=== PATIENT | male | born 1960 | race Caucasian/White ===

== ENCOUNTER 2017-05-06 00:09 | Emergency (ER) | payer MEDICARE, SELFPAY ==
[2017-05-06 00:10] VITALS: BP 125/77; PULSE 68; RESP 18; TEMP 36.8; O2SAT 95; BMI 28.8
--- NOTE | 2017-05-06 00:19 | ED.VISSUMM ---
- ER Visit Summary Date of Service: 05/06/17 Chief Complaint: Back pain History of Present Illness: The patient is a 56 M with history of CML and recent rib fractures who presents with back pain. Patient states he fell 2 weeks ago and broke ribs on the left lateral chest. He has been taking Percocet for this. This morning he woke up and had severe back pain in the right midline thoracic region radiating down into his sacrum area. He denies any trauma. He is last 2 Percocet without relief. He has been having difficulty ambulating secondary to the pain. When he went to get his mail and came inside, his legs gave out and he had to crawl back to his apartment. He has had to crawl around his apartment since because of inability to stand secondary to the pain. He denies fever, abdominal pain, numbness or tingling in the legs, loss of bowel or bladder function. Denies history of IV drug use or back surgery. He does have history of leukemia, COPD, and atrial fibrillation. He is not anticoagulated. Physical Examination: Vital signs: afebrile, hemodynamically stable, no hypoxia on room air General: well nourished, well developed, in no distress, but appears uncomfortable, laying partially on his right side. Skin: warm, dry, no rash, no pallor HEENT: normocephalic and atraumatic; PERRL, EOMI, moist mucous membranes Cardiovascular: regular rate and rhythm without murmurs, no peripheral edema, 2+ pulses all distal extremities Respiratory: No increased work of breathing, shallow respirations secondary to pain, lungs are clear to auscultation bilaterally, no rales, rhonchi or wheezing Abdominal: Abdomen is soft, nontender with normoactive bowel sounds, no guarding or rebound, no masses, good rectal tone MSK: Moves all extremities, no deformities, weakness (4/5) in dorsiflexion and plantar flexion that is symmetric Neuro: Awake and alert, oriented ?4. No facial droop, sensation and motor function intact and symmetric, sensation intact in the perineum Test Results: Abnormal Lab Results 05/06/17 05/06/17 05/06/17 00:35 00:35 02:28 WBC 4.9 RBC 4.75 Hgb 14.8 Hct 44.7 MCV 94.1 H MCH 31.2 MCHC 33.1 RDW 13.4 RDW Differential 46.1 H Plt Count 151 MPV 10.0 Immature Gran % (Auto) 0.600 Neut % (Auto) 48.8 Lymph % (Auto) 39.1 [place] % (Auto) 7.7 Eos % (Auto) 3.6 Baso % (Auto) 0.2 Absolute Neuts (auto) 2.4 Absolute Lymphs (auto) 1.93 Total Counted Not Reportable ESR 1 Sodium 141 Potassium 4.2 Chloride 106 Carbon Dioxide 28.0 Anion Gap 7 BUN 24 H Creatinine 1.06 Estim Creat Clear Calc 65.93 Est GFR (MDRD) Af Amer 93 Est GFR (MDRD) Non-Af 77 BUN/Creatinine Ratio 22.6 H Glucose 112 H Calcium 8.5 Total Bilirubin 0.60 AST 27 ALT 33 Alkaline Phosphatase 125 H Troponin I < 0.02 C-React Prot Ext Range < 2.90 Total Protein 6.7 Albumin 3.6 Globulin 3.1 Albumin/Globulin Ratio 1.2 Lipase 93 Urine Color Yellow Urine Clarity Clear Urine pH 6.0 Ur Specific Quentin 1.015 Urine Protein Negative Urine Glucose (UA) Normal Urine Ketones Negative Urine Occult Blood Negative Urine Nitrite Negative Urine Bilirubin Negative Urine Urobilinogen Normal Ur Leukocyte Esterase Negative Urine RBC 0 SEEN Urine WBC 0 SEEN Ur Squamous Epith Cells 0 SEEN Urine Bacteria 0 SEEN Urine Mucus 0 SEEN Emergency Department Course and Treatment: Patient was given IV fluids and morphine for pain. He did not get much relief from the morphine. Workup was performed with concern that patient's back pain may be pathological rather than a simple muscle spasm. Patient does have a history of leukemia, and he is having midline back pain with weakness in his legs that may be secondary to pain but difficult to tell at this time. Workup also for intra-abdominal pathologies, including aortic dissection, given the patient is complaining of severe back pain in addition to his left-sided rib pain. Patient had no leukocytosis, no electrolyte derangements, no hepatic derangements. Troponin negative. ESR was 1 and CRP was less than 2.9, thus negative inflammatory markers. EKG showed a normal sinus rhythm without ischemia or ectopy. CTA of the chest, abdomen and pelvis showed no aortic dissection or pulmonary embolism. It did not note fractured ribs either. There were no concerning metastatic lesions noted in the thoracic or abdominal cavities and there were no spinal bony abnormalities that would be concerning for metastasis or pathologic fractures. Patient continued to have pain despite the morphine and was stating it is radiating into his thighs bilaterally. Straight leg raise was repeated, and patient in a supine position had negative straight leg raise bilaterally. He continued to have midline tenderness and right paraspinal tenderness from the low thoracic to the low lumbar region. Strength reevaluated and it was 5/5 bilaterally. Patient was given oral Zanaflex and had great improvement in his pain. He stated it still felt sore but he felt he could walk now. Reevaluation showed no bowel or bladder dysfunction, good strength and symmetric in the lower extremities, and patient was ambulated to show he could walk. At this time I do not think there are any red flag symptoms concerning for infectious process, metastatic process, cauda equina syndrome, or other need for emergent MRI. Patient was given a prescription for Zanaflex to treat muscle spasm. He was given strict return precautions and will come back if he has any worsening of his condition, including bowel or bladder incontinence, retention, actual weakness rather than just pain in the legs with ambulation, or any other concerns. Treatment Plan: [] Disposition: Discharge home Impression: Acute back muscle spasm This note was generated with [employer] dictation software. It may contain incorrect words, spelling, and punctuation that were not noted in review of the chart prior to signing ED Disposition - Plan for ED Patient: Chief Complaint: Back Prescriptions: Tizanidine HCl [Zanaflex] 2 mg PO Q6H PRN #20 tab PRN Reason: Muscle Spasm Referrals: Bella Ribeiro MD [Primary Care Provider] -
--- NOTE | 2017-05-06 00:22 | EKG12_ITS ---
Test Reason : Blood Pressure : / mmHG Vent. Rate : 068 BPM Atrial Rate : 068 BPM P-R Int : 140 ms QRS Dur : 086 ms QT Int : 372 ms P-R-T Axes : 026 028 043 degrees QTc Int : 395 ms Sinus rhythm with Premature atrial complexes Otherwise normal ECG Confirmed by LIDYA SALTER, MIGUEL ÁNGEL ([id number]), editor index JENNI SCOTT ([id number]) on 05/09/2017 8:37:21 AM Referred By: LON Confirmed By:MIGUEL ÁNGEL BOSE MD
--- NOTE | 2017-05-06 00:23 | CT_ITS ---
STUDY: CTA CHEST REASON FOR EXAM: Male, 56 years old. Back pain. History of broken ribs. RADIATION DOSAGE (If Supplied By Facility): CTDIvol = ( 22.97 ) mGy, DLP = ( 583.35 ) mGycm TECHNIQUE: The examination was performed with the intravenous administration of 100 ml of Isovue 370 contrast material. Post-processing of the angiographic images was performed, with multiplanar reformation and 3D reconstruction. Individualized dose optimization techniques were used for this CT. COMPARISON: None. FINDINGS: : TRACHEA, THYROID, ESOPHAGUS: No tracheomalacia,stricture or wall thickening. Thyroid and esophagus are normal CARDIOVASCULAR SYSTEM:The thoracic aorta is normal with no aneurysm, dissection or developmental anomalies. The pulmonary trunk and the left and right pulmonary arteries and their lobar and segmental branches do not show any abnormal and persistent filling defects in them. There is therefore no evidence of pulmonary embolism. The heart is normal. There are no venous anomalies MELANIA AND LYMPH NODES: No hilar masses and no mediastinal, hilar, axillary or supraclavicular adenopathy LUNGS, LOW-ATTENUATION: No traction bronchiectasis, honeycombing,emphysema, lung cysts or cavitations. No evidence of lung laceration. LUNGS, HIGH ATTENUATION: Platelike atelectatic changes in the lung bases with mild increased interstitial markings in the lower lobes. No areas of contusion LUNGS, MOSAIC/CRAZY PAVING: Not evident PLEURA AND CHEST WALL: No plural effusions, pneumothoraces,rib fractures or any osteolytic/osteoblastic changes . The soft tissue chest wall including the breasts are normal UPPER ABDOMEN: Unremarkable . CT/CTA Chest W/WO Contrast IMPRESSION: No evidence of any thoracic aortic dissection or aneurysm. No evidence of any pulmonary embolus. Plate atelectatic changes in the lung bases with mild increased interstitial markings in the lower lobe. No acute rib fractures Electronically Signed: Brian Lama, at 2:48 EST Tel , Service support ,
--- NOTE | 2017-05-06 00:23 | CT_ITS ---
STUDY: CTA ABDOMEN AND PELVIS REASON FOR EXAM: Male, 55 years old. Shortness of breath and cough for several weeks. RADIATION DOSAGE (If Supplied By Facility): CTDIvol = ( 9.02 ) mGy, DLP = ( 337.97 ) mGycm TECHNIQUE: The examination was performed with the intravenous administration of 75 ml of Isovue 370 contrast material. Post-processing of the angiographic images was performed, with multiplanar reformation and 3D reconstruction. Individualized dose optimization techniques were used for this CT. COMPARISON: None. FINDINGS: The aorta is visualized is entirety and shows no dissection or focal aneurysms. The takeoffs of the celiac axis, the SMA, the SANDRINE and renal arteries are within normal limits. The common iliac arteries, the internal and external iliac arteries and in the common femoral arteries are normal. The liver, gallbladder, spleen, pancreas, kidneys and adrenals are normal. The stomach is normal. There is no bowel distention or free intraperitoneal air and no acute appendicitis or diverticulitis. The abdominal wall is intact. There is no retrocrural, retroperitoneal or mesenteric adenopathy. The bones and joints are normal. The urinary bladder is normal. The prostate is not enlarged and is no inguinal or pelvic adenopathy. CT/CT ANGIO ABD&PEL W/O&W/DYE IMPRESSION: No evidence of any thoracic aorta dissection or focal aneurysm. No acute findings in the abdomen or pelvis. Electronically Signed: Brian Lama, at 2:53 EST Tel , Service support ,
[2017-05-06] MEDS: Ondansetron 4 MG/2 ML Vial IV (00:45)
[2017-05-06] MEDS: 0.9% Normal Saline 1,000 ML 1000 ML IV (00:47)
[2017-05-06 00:48] LABS: Erythrocyte Sedimentation Rate 1 mm/hr (0-20)
[2017-05-06 00:49] LABS: Absolute Lymphocyte Count 1.93 X10^3/ul (0.83-4.51); Absolute Neutrophil Count 2.4 X10^3/uL (2.0-7.7); Basophil# 0.01 X10^3/uL; Basophil% 0.2 % (0-1); Eosinophil# 0.18 X10^3/uL; Eosinophils% 3.6 % (0-5); Hematocrit 44.7 % (40-54); Hemoglobin 14.8 g/dl (13.0-16.5); Lymphocyte # 1.93 X10^3/ul (4.0); Lymphocyte % 39.1 % (19-41); Mean Corp Hgb Conc 33.1 g/gl (32-36); Mean Corpuscular Hgb 31.2 pg (27.0-32.0); Mean Corpuscular Volume 94.1 fL (80-94); Monocyte# 0.38 X10^3/uL; Monocyte% 7.7 % (0-10); Neutrophil # 2.41 X10^3/uL (2.7-7.7); Neutrophil % 48.8 % (47-70); POSITIVE COUNT NO; POSITIVE DIFFERENTIAL NO; POSITIVE MORPHOLOGY NO; Platelet Count 151 K/mm3 (150-450); RBC Distribution Width CV 13.4 % (11.6-14.6); RBC Distribution Width SD 46.1 fl (35.1-43.9); Red Blood Count 4.75 M/mm3 (4.6-6.2); White Blood Count 4.9 K/mm3 (4.4-11.0)
[2017-05-06 00:55] VITALS: BP 99/61; PULSE 62; RESP 16; O2SAT 69
--- NOTE | 2017-05-06 01:26 | ED.RN ---
PT REFUSES ENTIRE DOSE OF MORPHINE, 6MG OF 10 MG ORDERED GIVEN. PT RESTING WITH EYES CLOSED AFTER 6MG, RR 7, AWAKES EASILY TO NAME. PT STATES PAIN IS TOLERABLE AT THIS TIME. MD NOTIFIED.
--- NOTE | 2017-05-06 01:36 | ED.RN ---
REMAINING 4MG OF ORDERED 10 MG GIVEN, PT'S PAIN INCREASED, AWAKE, ALERT, RR 24, SPO2 99%, BP 100/51. MD REQUESTS ENTIRE DOSE BE GIVEN.
[2017-05-06 02:16] LABS: ALB/GLOB Ratio 1.2 RATIO (0.9-2.4); AST(SGOT) 27 U/L (15-37); Alanine Aminotransfer ALT/SGPT 33 U/L (16-61); Albumin, Serum 3.6 g/dL (3.2-5.0); Alkaline Phosphatase 125 U/L (45-117); Anion Gap 7 (5-15); BUN 24 mg/dL (7-18); BUN/Creat Ratio 22.6 RATIO (10-20); CRP < 2.90 mg/L (0.0-3.0); Calcium,Total 8.5 mg/dL (8.5-10.1); Chloride 106 mmol/L (98-107); Creatinine, Serum 1.06 mg/dL (0.70-1.30); EST Glomerular Filtration Rate 77 mL/min (>60); Est Glom Filt Rate - Afr Amer 93 mL/min (>60); Estimated Creatinine Clearance 65.93 ml/min; Globulin 3.1 g/dL (2.2-4.2); Glucose 112 mg/dL (74-106); Lipase 93 U/L (73-393); Potassium 4.2 mmol/L (3.5-5.1); Protein, Total 6.7 g/dL (6.4-8.2); Sodium Level 141 mmol/L (136-145)
[2017-05-06 02:34] LABS: Bacteria 0 SEEN /hpf (None Seen); Mucous, Urine 0 SEEN /hpf (<or=2+); Red Blood Cells-Urine 0 SEEN /hpf (0-5); Squamous Epithelial Cells - UA 0 SEEN /hpf (0-5); White Blood Cells 0 SEEN /hpf (0-5)
[2017-05-06 02:36] LABS: Color, Urine Yellow (Yellow); Glucose, Dipstick Normal (Normal); Ketone-Dipstick Negative (Negative); Leukocyte Esterase-Dipstick Negative /ul (Negative); Nitrite-Dipstick Negative (Negative); Occult Blood-Urine Negative /ul (Negative); Protein-Dipstick Negative (Negative); Specific Gravity, Urine 1.015 (1.002-1.030); Urine Bilirubin Dipstick Negative (Negative); Urine Clarity Clear (Clear); Urine Urobilinogen Normal (Normal)
[2017-05-06 03:07] VITALS: BP 106/53; PULSE 60; RESP 15; O2SAT 97
[2017-05-06 04:07] VITALS: BP 91/53; PULSE 61; RESP 13; O2SAT 97
[2017-05-06] MEDS: tiZANidine HCl 2 MG Tablet 4 MG PO (04:28)
--- NOTE | 2017-05-06 05:43 | ED.DEP ---
ED Disposition - Plan for ED Patient: Disposition: Home or Assisted Living Chief Complaint: Back Instructions: ED Spasm Back No Trauma Prescriptions: Tizanidine HCl [Zanaflex] 2 mg PO Q6H PRN #20 tab PRN Reason: Muscle Spasm Referrals: Bella Ribeiro MD [Primary Care Provider] - 2 Days Additional Instructions: Please follow-up with your doctor to discuss your back pain and your continued rib pain. Please continue to use the incentive spirometer and pain medications as you were instructed for the rib pain. You may use ibuprofen or naproxen as needed for the back pain. Also you may use the muscle relaxant to help with muscle spasm and pain. If you develop difficulty controlling your bowels or bladder, if you find you cannot have a bowel movement or urinate, if you develop a high fever, severe pain not controlled with the medications, weakness in your legs and inability to walk, or any other concerning symptoms, please return the emergency department immediately for another evaluation.
[2017-05-06 07:23] VITALS: BP 91/66; PULSE 71; RESP 16
--- NOTE | 2017-05-06 07:25 | ED.RN ---
Pt c/o pain to lower back. Verifies his ride is on way. Asks for additional meds. Physician aware and refused additional meds.
== END 2017-05-06 08:41 | disposition home or self-care (01) ==
PROVIDERS: Emergency Provider Emergency Medicine; Family Provider Internal Medicine; PCP Internal Medicine
DX: M62.830 Muscle spasm of back (principal); M54.6 Pain in thoracic spine; M54.5 Low back pain; J44.9 Chronic obstructive pulmonary disease, unspecified
CPT/HCPCS: 71275; 74174; 80053; 81001; 83690; 84484; 85025; 85652; 86140; 93005; 96361; 96374; 96375; 99285; J7030; Q9967; A4216; J2405

== ENCOUNTER 2017-09-26 04:36 | Emergency (ER) | payer MEDICARE, SELFPAY ==
[2017-09-26 04:37] VITALS: BP 128/88; PULSE 73; RESP 18; TEMP 36.4; O2SAT 99; BMI 26.4
--- NOTE | 2017-09-26 05:02 | ED.VISSUMM ---
- ER Visit Summary Date of Service: 09/26/17 Chief Complaint: [Rash] History of Present Illness: The patient is a 56 M [who presents the emergency department with a rash. It started yesterday. It is very pruritic. It is on his head neck chest and back. No new contacts. No systemic symptoms. No fever body aches malaise cough or any other abnormality. He has never had any similar breakouts in the past. He does have a history of CML skin cancer and leukemia. He is status post bone marrow transplant.] Physical Examination: [] Afebrile vital signs within acceptable limits Patient has a great papular erythematous lesions on the head and neck chest and back. There are a couple that have very small pustules. No surrounding erythema. He is itching. There is no open wounds. Regular rate and rhythm no murmurs Clear to auscultation bilaterally TMs clear No intraoral mucosal lesions Test Results: [] Emergency Department Course and Treatment: [The cause of this dermatitis is unclear. He will be given Kenalog IM. He was given Benadryl to use every 6 hours for itching. He will be given a topical hydrocortisone and will follow up with Dr. Escamilla in 3 days.] Treatment Plan: [] Disposition: [Discharge] Impression: [Nonspecific dermatitis] This note was generated with [employer] dictation software. It may contain incorrect words, spelling, and punctuation that were not noted in review of the chart prior to signing ED Disposition - Plan for ED Patient: Chief Complaint: Rash Referrals: Bella Ribeiro MD [Primary Care Provider] -
[2017-09-26] MEDS: DiphenhydrAMINE 25 MG Capsule PO (05:04)
[2017-09-26] MEDS: Triamcinolone Acetonide 40 MG/ML Vial IM (05:04)
--- NOTE | 2017-09-26 05:08 | ED.DEP ---
ED Disposition - Plan for ED Patient: Chief Complaint: Rash Instructions: ED Dermatitis Non Specific Rash Prescriptions: DiphenhydrAMINE [Benadryl] 25 mg PO TID PRN PRN #20 capsule PRN Reason: Itching Hydrocortisone 2.5% Crm [Hytone] 1 applic TOPICAL BID PRN PRN #1 tube PRN Reason: Rash/Topical Irritation Referrals: Bella Ribeiro MD [Primary Care Provider] - 3-5 Days
[2017-09-26 05:25] VITALS: BP 102/71; PULSE 56; RESP 18; O2SAT 97
== END 2017-09-26 05:28 | disposition home or self-care (01) ==
LOC: ED 04:58
PROVIDERS: Emergency Provider Emergency Medicine; Family Provider Internal Medicine; PCP Internal Medicine
DX: L30.9 Dermatitis, unspecified (principal); Z79.899 Other long term (current) drug therapy
CPT/HCPCS: 96372; 99283

== ENCOUNTER 2017-11-17 19:17 | Emergency (ER) | payer MEDICARE, SELFPAY ==
[2017-11-17 19:18] VITALS: BP 110/75; PULSE 77; RESP 18; TEMP 36.7; O2SAT 95; BMI 25.0
[2017-11-17] MEDS: 0.9% Normal Saline 1,000 ML 1000 ML IV (19:57)
[2017-11-17] MEDS: DiphenhydrAMINE 50 MG/ML Syringe IV (19:58)
[2017-11-17] MEDS: Ketorolac 30 MG/ML Syringe IV (19:58)
[2017-11-17] MEDS: Metoclopramide 10 MG/2 ML Vial IV (19:58)
[2017-11-17 20:29] LABS: Absolute Lymphocyte Count 1.89 X10^3/ul (0.83-4.51); Absolute Neutrophil Count 3.4 X10^3/uL (2.0-7.7); Basophil# 0.02 X10^3/uL; Basophil% 0.3 % (0-1); Eosinophil# 0.16 X10^3/uL; Eosinophils% 2.6 % (0-5); Hematocrit 45.1 % (40-54); Hemoglobin 15.2 g/dl (13.0-16.5); Lymphocyte # 1.89 X10^3/ul (4.0); Lymphocyte % 31.2 % (19-41); Mean Corp Hgb Conc 33.7 g/gl (32-36); Mean Corpuscular Volume 91.9 fL (80-94); Mean Platelet Vol. 9.7 fl (6.2-12.0); Monocyte# 0.59 X10^3/uL; Monocyte% 9.7 % (0-10); Neutrophil # 3.39 X10^3/uL (2.7-7.7); Platelet Count 160 K/mm3 (150-450); RBC Distribution Width CV 13.6 % (11.6-14.6); RBC Distribution Width SD 45.3 fl (35.1-43.9); Red Blood Count 4.91 M/mm3 (4.6-6.2); White Blood Count 6.1 K/mm3 (4.4-11.0)
[2017-11-17 20:34] LABS: POSITIVE COUNT NO; POSITIVE DIFFERENTIAL NO; POSITIVE MORPHOLOGY NO
[2017-11-17 20:59] LABS: Anion Gap 7 (5-15); BUN 18 mg/dL (7-18); BUN/Creat Ratio 19.6 RATIO (10-20); Calcium,Total 9.3 mg/dL (8.5-10.1); Chloride 106 mmol/L (98-107); Creatinine, Serum 0.92 mg/dL (0.70-1.30); EST Glomerular Filtration Rate 91 mL/min (>60); Est Glom Filt Rate - Afr Amer 110 mL/min (>60); Estimated Creatinine Clearance 77.99 ml/min; Glucose 105 mg/dL (74-106); Sodium Level 141 mmol/L (136-145)
[2017-11-17 21:01] LABS: Lactic Acid 0.9 mmol/L (0.4-2.0)
--- NOTE | 2017-11-17 22:05 | ED.VISSUMM ---
- ER Visit Summary Date of Service: 11/17/17 Chief Complaint: Cough History of Present Illness: The patient is a [address] Ribeiro. He reports he has a cough began 2-3 days ago. Is productive white, milky sputum. Reports his sore throat Zeta 10 severity. He has nasal congestion and pressure behind his sinuses that is given him a headache that is 9 out of 10 severity. He denies any fever or chills. No chest pain or shortness of breath. Ports he does feel lightheaded. He denies any vertigo. Patient does have a history of CML with bone marrow transplant in 2008. He is not currently immunosuppressed. Physical Examination: Vitals: Stable. Afebrile. General: Well-nourished and well-developed. Head: Normocephalic atraumatic. Neck: Supple, no lymphadenopathy. No JVD. Nontender. Cardiovascular: Regular rate and rhythm. No murmurs. Respiratory: No respiratory distress. Clear to auscultation bilaterally. Abdominal: Soft, nontender, nondistended, normal bowel sounds. No guarding, rebound, or peritoneal signs. Back: Nontender. Extremities: Nontender, no edema. Skin: Normal color, no rash. Neurologic: Alert and oriented ?3. Cranial nerves II through XII are intact. Normal strength and sensation. Psych: Normal affect. Test Results: CBC is normal. Chem-7 is normal. Lactic acid is 0.9. Clinical Impression(s) from Imaging Studies Brain CT 11/17/17 19:49 IMPRESSION: Normal unenhanced CT scan of the brain. Electronically Signed: Wu Freed MD at 20:53 EDT , Service support , Chest X-Ray 11/17/17 20:35 IMPRESSION: 1. Right perihilar peribronchial cuffing which may be associated with bronchitis or bronchospastic disease. 2. There are streaky densities of the posterior lung bases consistent with atelectasis and/or fibrosis, stable in the interval. 3. There is a limited inspiration. 4. There are calcified plaques of the aortic arch. Electronically Signed: Wu Freed MD at 20:57 EDT , Service support , Emergency Department Course and Treatment: Patient had an IV placed. Is given a liter bolus normal saline. He was given Reglan, Toradol, and Benadryl IV. He reports his headache is completely resolved. I did discuss the results of his chest x-ray with him and at this time he would like to be placed on an antibiotic. Is given dose of doxycycline here. Treatment Plan: Patient be discharged on doxycycline instructed up his primary care physician in 3-5 days if not improving. Return to the emergency department for any worsening symptoms. Disposition: To home in improved and stable condition. Impression: 1. URI. This note was generated with [employer] dictation software. It may contain incorrect words, spelling, and punctuation that were not noted in review of the chart prior to signing ED Disposition - Plan for ED Patient: Disposition: Home or Assisted Living Chief Complaint: Dizziness Instructions: ED Upper Resp Infec Abx Tx Prescriptions: Doxycycline Monohydrate 100 mg PO BID #20 capsule Referrals: Bella Ribeiro MD [Primary Care Provider] - 3-5 Days
[2017-11-17] MEDS: Doxycycline 100 MG CAPSULE PO (22:14)
[2017-11-17 22:15] VITALS: BP 103/72; PULSE 69; RESP 14; O2SAT 96
== END 2017-11-17 22:20 | disposition home or self-care (01) ==
LOC: ED 19:54
PROVIDERS: Emergency Provider Emergency Medicine; Family Provider Internal Medicine; PCP Internal Medicine
DX: J06.9 Acute upper respiratory infection, unspecified (principal); C92.11 Chronic myeloid leukemia, BCR/ABL-positive, in remission
CPT/HCPCS: 70450; 71046; 80048; 83605; 85025; 96361; 96374; 96375; 99285; J7030

== ENCOUNTER 2018-01-04 19:05 | Emergency (ER) | payer MEDICARE, SELFPAY ==
[2018-01-04 19:08] VITALS: BP 134/74; PULSE 65; PULSE 69; RESP 18; TEMP 36.7; O2SAT 96; O2SAT 97; BMI 26.9
--- NOTE | 2018-01-04 19:25 | EKG12_ITS ---
Test Reason : CHEST PAIN Blood Pressure : / mmHG Vent. Rate : 064 BPM Atrial Rate : 064 BPM P-R Int : 150 ms QRS Dur : 084 ms QT Int : 388 ms P-R-T Axes : 014 -27 007 degrees QTc Int : 400 ms Normal sinus rhythm Normal ECG Confirmed by LIDYA SALTER, MIGUEL ÁNGEL ([id number]), makeup editor JENNI SCOTT ([id number]) on 01/08/2018 2:39:36 PM Referred By: JOSE ALFREDO/GILMA Confirmed By:MIGUEL ÁNGEL BOSE MD
--- NOTE | 2018-01-04 19:48 | RAD_ITS ---
STUDY: X-RAY CHEST REASON FOR EXAM: Male, 57 years old. Chest pain. TECHNIQUE: PA and lateral views of the chest. COMPARISON: Chest radiograph dated November 17, 2017. FINDINGS: The lungs are underexpanded with crowding of bronchovascular markings and obscuration of the lung bases. The previous radiograph was also obtained in expiration with this suggests the possibility of restrictive lung disease. There is suggestion of right basilar subsegmental atelectasis. There is no demonstrated pleural abnormality. Normal size heart. There are calcified mediastinal and hilar lymph nodes. Normal visualized pulmonary arteries. There is atherosclerotic calcification of the aortic arch with tortuosity. There is an increased kyphosis of the thoracic spine. Normal visualized ribs, clavicles, and shoulders. There is no demonstrated abnormality of the visualized soft tissue structures of the upper abdomen. RAD/Chest PA and Lateral IMPRESSION: Right basilar subsegmental atelectasis. Electronically Signed: Karolina Nice MD at 20:39 EDT , Service support ,
[2018-01-04 19:50] LABS: Absolute Lymphocyte Count 1.32 X10^3/ul (0.83-4.51); Absolute Neutrophil Count 2.3 X10^3/uL (2.0-7.7); Basophil# 0.01 X10^3/uL; Basophil% 0.2 % (0-1); Eosinophil# 0.09 X10^3/uL; Eosinophils% 2.2 % (0-5); Hematocrit 41.3 % (40-54); Hemoglobin 13.8 g/dl (13.0-16.5); Lymphocyte # 1.32 X10^3/ul (4.0); Lymphocyte % 32.9 % (19-41); Mean Corp Hgb Conc 33.4 g/gl (32-36); Mean Corpuscular Hgb 31.8 pg (27.0-32.0); Mean Corpuscular Volume 95.2 fL (80-94); Mean Platelet Vol. 10.2 fl (6.2-12.0); Monocyte# 0.33 X10^3/uL; Monocyte% 8.2 % (0-10); Neutrophil # 2.25 X10^3/uL (2.7-7.7); Neutrophil % 56.3 % (47-70); Platelet Count 124 K/mm3 (150-450); RBC Distribution Width CV 13.3 % (11.6-14.6); RBC Distribution Width SD 45.2 fl (35.1-43.9); Red Blood Count 4.34 M/mm3 (4.6-6.2)
--- NOTE | 2018-01-04 19:50 | ED.VISSUMM ---
- ER Visit Summary Date of Service: 01/04/18 Chief Complaint: Back pain History of Present Illness: The patient is a 57 M who states that since yesterday he has had a sharp stabbing constant pain in between his shoulder blades. It is worse with movement and coughing. He states he has a chronic cough but it seems to be worse over the past 3-4 days. No change in sputum production. He does note a history of COPD and CML. He also states he has had some chest heaviness that has been intermittent in nature. The patient states that at times at work today he has had lightheadedness/dizziness and that has been intermittent. Using online resources see the patient has a history of sensitivity pneumonitis. He sees [facility] for pulmonology. He is on daily prednisone. Physical Examination: Afebrile vital signs are stable Gen: Well-nourished well-developed Head: Normocephalic atraumatic Eyes: Perrl EOMI ENT: TMs clear no rhinorrhea moist mucous membranes Neck: Supple no lymphadenopathy no JVD nontender CVS: Regular rate rhythm no murmurs normal S1-S2 Respiratory: No distress clear to auscultation bilaterally chest nontender Abdomen: Soft nontender nondistended normal bowel sounds no masses Back: Tender to palpation which reproduces a sharp stabbing pain when I palpate the rhomboid musculature and associated ribs on the back. Extremity: Nontender no edema Skin: Normal color no rash Neuro: alert orientated ?3 CN II-XII intact normal strength sensation reflexes gait cerebellar Psych: Normal affect normal mood Test Results: EKG demonstrates a normal sinus rhythm at a rate of 64 without ectopy and this appears unchanged compared to May 2017. Accounted for. Troponin negative. CT Ana of the chest was obtained she was negative for dissection or embolism. This however does show some bibasilar airspace consolidation atelectasis possibly pneumonia. Emergency Department Course and Treatment: Patient has a change in his cough. I think he has chest wall pain given that I can reproduce symptoms in the back. His lung sounds are pretty clear. As far as the bibasilar consolidation area could this be related to the interstitial pneumonitis. I cannot review CTs from the [facility] at this time. That would be helpful in comparison. As he has a change in cough reasonable to increase his prednisone and a burst dose. Also add some azithromycin. Follow-up if not improving. Impression: 1. Chest wall pain 2. Hypersensitivity pneumonitis This note was generated with [employer] dictation software. It may contain incorrect words, spelling, and punctuation that were not noted in review of the chart prior to signing ED Disposition - Plan for ED Patient: Disposition: Home or Assisted Living Chief Complaint: Chest Pain Prescriptions: Albuterol Aerosols [Ventolin Aerosols] 2.5 mg INHALATION Q4H PRN #25 vial Azithromycin [Zithromax] 250 mg PO DAILY #4 tab Prednisone [Deltasone] 60 mg PO DAILY #15 tab Referrals: Blue Nichols MD [NON-STAFF] - 1 Week if not improving
[2018-01-04 19:58] LABS: POSITIVE COUNT NO; POSITIVE DIFFERENTIAL NO; POSITIVE MORPHOLOGY NO
[2018-01-04 20:05] LABS: ALB/GLOB Ratio 1.4 RATIO (0.9-2.4); AST(SGOT) 24 U/L (15-37); Alanine Aminotransfer ALT/SGPT 42 U/L (16-61); Albumin, Serum 3.9 g/dL (3.2-5.0); Alkaline Phosphatase 105 U/L (45-117); Anion Gap 7 (5-15); BUN 23 mg/dL (7-18); Calcium,Total 8.9 mg/dL (8.5-10.1); Chloride 106 mmol/L (98-107); EST Glomerular Filtration Rate 82 mL/min (>60); Est Glom Filt Rate - Afr Amer 100 mL/min (>60); Estimated Creatinine Clearance 71.75 ml/min; Globulin 2.7 g/dL (2.2-4.2); Glucose 137 mg/dL (74-106); Potassium 3.8 mmol/L (3.5-5.1); Protein, Total 6.6 g/dL (6.4-8.2); Sodium Level 143 mmol/L (136-145)
[2018-01-04 20:25] VITALS: BP 106/72; PULSE 69; RESP 16; O2SAT 96
--- NOTE | 2018-01-04 20:26 | CT_ITS ---
STUDY: CTA CHEST REASON FOR EXAM: Male, 57 years old. Chest pain. RADIATION DOSAGE (If Supplied By Facility): CTDIvol = ( 17.9 ) mGy, DLP = ( 467.29 ) mGycm TECHNIQUE: The examination was performed with the intravenous administration of 100 ml of Isovue 370 contrast material. Post-processing of the angiographic images was performed, with multiplanar reformation and 3D reconstruction. Individualized dose optimization techniques were used for this CT. COMPARISON: CT of the chest dated May 06, 2017. FINDINGS: Cardiac monitoring leads are present. Normal enhancement of the main pulmonary artery and right and left pulmonary arteries. Normal enhancement of the bilateral peripheral pulmonary arteries. There is no demonstrated pulmonary embolism. Normal thoracic aorta and visualized great vessels. There is no demonstrated aortic dissection. There is borderline cardiac cardiomegaly. Normal mediastinum. Normal hilar regions. Normal visualized trachea and bronchi. The lungs are well expanded. There is patchy bilateral basilar airspace consolidation and atelectasis. Normal pleura. Normal chest wall structures. Normal osseous structures. Normal visualized upper abdomen. CT/CTA Chest W/WO Contrast IMPRESSION: 1. No CTA demonstrated pulmonary embolism or arterial dissection. 2. Bilateral basilar airspace consolidation atelectasis likely representing pneumonia. Electronically Signed: Karolina Nice MD at 21:24 EDT , Service support ,
[2018-01-04 21:30] VITALS: BP 117/82; PULSE 58; RESP 16; O2SAT 96
[2018-01-04] MEDS: Azithromycin 250 MG Tablet 500 MG PO (22:00)
[2018-01-04] MEDS: predniSONE 20 MG Tablet 40 MG PO (22:00)
[2018-01-04 22:04] VITALS: BP 126/78; PULSE 60; RESP 18; O2SAT 97
== END 2018-01-04 22:13 | disposition home or self-care (01) ==
PROVIDERS: Emergency Provider Emergency Medicine; Family Provider Internal Medicine; PCP Internal Medicine
DX: R07.89 Other chest pain (principal); J67.9 Hypersensitivity pneumonitis due to unspecified organic dust; J44.9 Chronic obstructive pulmonary disease, unspecified; C92.10 Chronic myeloid leukemia, BCR/ABL-positive, not having achieved remission; E11.9 Type 2 diabetes mellitus without complications; K21.9 Gastro-esophageal reflux disease without esophagitis; Z79.899 Other long term (current) drug therapy; Z79.52 Long term (current) use of systemic steroids
CPT/HCPCS: 71046; 71275; 80053; 84484; 85025; 93005; 99285; Q9967; A4216

== ENCOUNTER 2018-01-17 10:08 | Emergency (ER) | payer MEDICARE, SELFPAY ==
[2018-01-17 10:09] VITALS: BP 108/69; PULSE 73; RESP 20; TEMP 36.8; O2SAT 95; BMI 25.0
[2018-01-17 10:25] VITALS: O2SAT 94
--- NOTE | 2018-01-17 10:33 | EKG12_ITS ---
Test Reason : CHEST PAIN Blood Pressure : / mmHG Vent. Rate : 073 BPM Atrial Rate : 073 BPM P-R Int : 168 ms QRS Dur : 088 ms QT Int : 366 ms P-R-T Axes : 077 -38 015 degrees QTc Int : 403 ms Sinus rhythm with Premature atrial complexes in a pattern of bigeminy Left axis deviation Abnormal ECG Confirmed by LIDYA SALTER, MIGUEL ÁNGEL ([id number]), associate entertainment editor JENNI SCOTT ([id number]) on 01/18/2018 10:06:07 AM Referred By: YAYO Confirmed By:MIGUEL ÁNGEL BOSE MD
--- NOTE | 2018-01-17 10:40 | RAD_ITS ---
STUDY: X-RAY CHEST REASON FOR EXAM: Male, 57 years old. Right-sided chest pain. TECHNIQUE: Single AP portable view of the chest. COMPARISON: Comparison is made with prior study dated January 04, 2018. FINDINGS: EKG electrodes are seen. There is blunting of the left costophrenic angle. Mild increased markings in the medial aspect of the left lower lobe suggestive of atelectasis. There is no demonstrated pleural abnormality. Normal size heart. Normal mediastinum and logan. Normal visualized pulmonary arteries. Normal visualized aortic arch and descending thoracic aorta. There are diffuse degenerative changes of the visualized thoracic spine. Normal visualized ribs, clavicles, and shoulders. There is no demonstrated abnormality of the visualized soft tissue structures of the upper abdomen. RAD/Chest 1 View (Portable) IMPRESSION: Blunting of the left costo phrenic angle with findings suggestive of atelectasis at the left lung base. Electronically Signed: Juan C Mast MD at 11:07 EDT Tel [phone], Service support ,
[2018-01-17 10:46] LABS: Absolute Lymphocyte Count 1.28 X10^3/ul (0.83-4.51); Absolute Neutrophil Count 3.2 X10^3/uL (2.0-7.7); Basophil# 0.01 X10^3/uL; Basophil% 0.2 % (0-1); Eosinophil# 0.11 X10^3/uL; Eosinophils% 2.2 % (0-5); Hematocrit 42.7 % (40-54); Hemoglobin 13.9 g/dl (13.0-16.5); Lymphocyte # 1.28 X10^3/ul (4.0); Lymphocyte % 26.1 % (19-41); Mean Corp Hgb Conc 32.6 g/gl (32-36); Mean Corpuscular Hgb 30.8 pg (27.0-32.0); Mean Corpuscular Volume 94.7 fL (80-94); Mean Platelet Vol. 10.3 fl (6.2-12.0); Monocyte# 0.29 X10^3/uL; Monocyte% 5.9 % (0-10); Neutrophil % 65.4 % (47-70); Platelet Count 131 K/mm3 (150-450); RBC Distribution Width CV 13.3 % (11.6-14.6); RBC Distribution Width SD 46.3 fl (35.1-43.9); Red Blood Count 4.51 M/mm3 (4.6-6.2); White Blood Count 4.9 K/mm3 (4.4-11.0)
[2018-01-17 10:47] LABS: POSITIVE COUNT NO; POSITIVE DIFFERENTIAL NO; POSITIVE MORPHOLOGY NO
[2018-01-17 11:10] LABS: Anion Gap 5 (5-15); BUN 21 mg/dL (7-18); BUN/Creat Ratio 21.1 RATIO (10-20); Chloride 106 mmol/L (98-107); EST Glomerular Filtration Rate 82 mL/min (>60); Est Glom Filt Rate - Afr Amer 100 mL/min (>60); Estimated Creatinine Clearance 71.75 ml/min; Glucose 120 mg/dL (74-106); Potassium 3.9 mmol/L (3.5-5.1); Sodium Level 140 mmol/L (136-145)
[2018-01-17 11:32] VITALS: BP 101/71; PULSE 56; RESP 16; O2SAT 92
--- NOTE | 2018-01-17 11:57 | ED.VISSUMM ---
- ER Visit Summary Date of Service: 01/17/18 Chief Complaint: Chest and back pain. History of Present Illness: The patient is a 57 M history of chronic myelogenous leukemia and [id number]. Also prior intermittent A. fib. Patient states around 8:45 AM right-sided chest discomfort and also back pain. He said this worked up several times in the past each of which have been negative. He was recently seen in the ER within the last several weeks. He has had prior negative workups. He has had 2 CTAs of the chest this year both of but in negative. No PEs. No dissections. No aneurysms. Physical Examination: Male no acute distress. Vital signs are stable afebrile. Pulse ox 94% on room air no signs of hypoxia. H EENT exam unremarkable. Neck nontender no lymphadenopathy. Lungs clear to auscultation bilaterally. Heart regular rhythm no murmur. Rate about 70. Chest wall nontender. Abdomen soft nontender. Normal bowel sounds. No peritoneal signs. Patient moving all 4 extremities. The neurovascular intact. Calves nontender without edema or cords. Equal symmetrical radial pulses. Back he has reproducible musculoskeletal back pain between his scapulas. There is no redness or warmth. No signs of trauma. Neurologically is awake and alert with no focal motor deficits. Test Results: Chest x-ray shows no acute abnormality. Normal cardiac silhouette and mediastinum. EKG shows a sinus rhythm rate of 73 with no acute signs of AK or ischemia. He does have some PACs. CBC normal. BMP normal. Troponin normal. Emergency Department Course and Treatment: Repeat exam patient is doing well. I reviewed his prior workups which were negative. I am comfortable with him being discharged home. Treatment Plan:. Follow-up with his primary care physician. Disposition: Discharge Impression: Acute chest and back pain suspect musculoskeletal etiology This note was generated with [employer] dictation software. It may contain incorrect words, spelling, and punctuation that were not noted in review of the chart prior to signing ED Disposition - Plan for ED Patient: Chief Complaint: Chest Pain Referrals: Bella Ribeiro MD [Primary Care Provider] -
--- NOTE | 2018-01-17 12:02 | ED.DCSUM_ITS ---
- ER Visit Summary Date of Service: 01/17/18 Chief Complaint: Chest and back pain. History of Present Illness: The patient is a 57 M history of chronic myelogenous leukemia and [id number]. Also prior intermittent A. fib. Patient states around 8:45 AM right-sided chest discomfort and also back pain. He said this worked up several times in the past each of which have been negative. He was recently seen in the ER within the last several weeks. He has had prior negative workups. He has had 2 CTAs of the chest this year both of but in negative. No PEs. No dissections. No aneurysms. Physical Examination: Male no acute distress. Vital signs are stable afebrile. Pulse ox 94% on room air no signs of hypoxia. H EENT exam unremarkable. Neck nontender no lymphadenopathy. Lungs clear to auscultation bilaterally. Heart regular rhythm no murmur. Rate about 70. Chest wall nontender. Abdomen soft nontender. Normal bowel sounds. No peritoneal signs. Patient moving all 4 extremities. The neurovascular intact. Calves nontender without edema or cords. Equal symmetrical radial pulses. Back he has reproducible musculoskeletal back pain between his scapulas. There is no redness or warmth. No signs of trauma. Neurologically is awake and alert with no focal motor deficits. Test Results: Chest x-ray shows no acute abnormality. Normal cardiac silhouette and mediastinum. EKG shows a sinus rhythm rate of 73 with no acute signs of MO or ischemia. He does have some PACs. CBC normal. BMP normal. Troponin normal. Emergency Department Course and Treatment: Repeat exam patient is doing well. I reviewed his prior workups which were negative. I am comfortable with him being discharged home. Treatment Plan:. Follow-up with his primary care physician. Disposition: Discharge Impression: Acute chest and back pain suspect musculoskeletal etiology This note was generated with [employer] dictation software. It may contain incorrect words, spelling, and punctuation that were not noted in review of the chart prior to signing ED Disposition - Plan for ED Patient: Chief Complaint: Chest Pain Referrals: Bella Ribeiro MD [Primary Care Provider] -
--- NOTE | 2018-01-17 12:02 | ED.DEP ---
ED Disposition - Plan for ED Patient: Chief Complaint: Chest Pain Referrals: Bella Ribeiro MD [Primary Care Provider] - 1 Week if not improving Additional Instructions: Call follow-up with your doctor.
[2018-01-17 12:14] VITALS: BP 108/64; PULSE 55; RESP 19; O2SAT 95
== END 2018-01-17 12:15 | disposition home or self-care (01) ==
LOC: ED 10:48
PROVIDERS: Emergency Provider Emergency Medicine; Family Provider Internal Medicine; PCP Internal Medicine
DX: R07.9 Chest pain, unspecified (principal); M54.6 Pain in thoracic spine; I48.91 Unspecified atrial fibrillation; Z79.82 Long term (current) use of aspirin; Z79.899 Other long term (current) drug therapy
CPT/HCPCS: 71045; 80048; 84484; 85025; 93005; 99285

== ENCOUNTER 2018-04-04 13:35 | Emergency (ER) | payer MEDICARE, SELFPAY ==
[2018-04-04 13:35] VITALS: BMI 28.8
[2018-04-04 13:36] VITALS: BP 116/63; PULSE 70; RESP 16; TEMP 36.8; O2SAT 96; BMI 26.1
--- NOTE | 2018-04-04 15:47 | CT_ITS ---
STUDY: CT ABDOMEN AND PELVIS WITHOUT CONTRAST REASON FOR EXAM: Male, 57 years old. Nausea, vomiting and diarrhea for one week. History of leukemia in remission. RADIATION DOSAGE (If Supplied By Facility): CTDIvol = ( 6.23 ) mGy, DLP = ( 307.97 ) mGycm TECHNIQUE: Transaxial images were obtained from the dome of the diaphragm to the symphysis pubis without oral contrast, and without intravenous contrast. Sagittal and coronal images were reconstructed. Individualized dose optimization techniques were used for this CT. COMPARISON: Prior abdomen and pelvic CT exam of May 06, 2017. FINDINGS: Posterior bibasilar atelectatic versus chronic changes. Chronically elevated left diaphragm. Normal liver. Normal gallbladder and extrahepatic biliary system. Stable mild splenomegaly. Normal pancreas. Normal bilateral adrenal glands. Normal right kidney. Normal left kidney. Normal visualized stomach. Normal small intestine. Normal colon. As on the prior exam, the appendix contains multiple appendicoliths but is not enlarged and is without inflammatory changes. Normal abdominal aorta. Normal inferior vena cava. Normal retroperitoneum. Normal urinary bladder. Normal abdominal wall. There are diffuse degenerative changes of the visualized lumbar spine. CT/Abdomen/Pelvis without Cont IMPRESSION: No acute bowel related findings. Negative for bowel obstruction, perforation or inflammatory bowel changes. Multiple appendicoliths of the appendix without enlargement or inflammatory changes. Normal size of the kidneys bilaterally without hydronephrosis or stones. Unremarkable urinary bladder. Unremarkable liver, gallbladder and pancreas. Stable mild splenomegaly. Electronically Signed: Vicki Bean MD at 16:43 EST , Service support ,
[2018-04-04 15:58] VITALS: BP 106/75; PULSE 69; RESP 14; TEMP 36.6; O2SAT 98
[2018-04-04] MEDS: 0.9% Normal Saline 1,000 ML 1000 ML IV (16:05)
[2018-04-04 16:06] VITALS: TEMP 36.6
[2018-04-04] MEDS: Ondansetron 4 MG/2 ML Vial IV ×2 (16:06→17:07)
[2018-04-04 16:34] LABS: Absolute Neutrophil Count 1.7 X10^3/uL (2.0-7.7); Basophil# 0.01 X10^3/uL; Basophil% 0.3 % (0-1); Eosinophil# 0.07 X10^3/uL; Eosinophils% 1.9 % (0-5); Hematocrit 43.1 % (40-54); Lymphocyte % 41.7 % (19-41); Mean Corp Hgb Conc 32.5 g/gl (32-36); Mean Corpuscular Hgb 30.2 pg (27.0-32.0); Mean Corpuscular Volume 93.1 fL (80-94); Monocyte# 0.31 X10^3/uL; Monocyte% 8.6 % (0-10); Neutrophil # 1.71 X10^3/uL (2.7-7.7); Neutrophil % 47.5 % (47-70); Platelet Count 144 K/mm3 (150-450); RBC Distribution Width CV 13.3 % (11.6-14.6); RBC Distribution Width SD 44.9 fl (35.1-43.9); Red Blood Count 4.63 M/mm3 (4.6-6.2); White Blood Count 3.6 K/mm3 (4.4-11.0)
[2018-04-04 16:36] LABS: ALB/GLOB Ratio 1.1 RATIO (0.9-2.4); AST(SGOT) 31 U/L (15-37); Alanine Aminotransfer ALT/SGPT 34 U/L (16-61); Albumin, Serum 3.6 g/dL (3.2-5.0); Alkaline Phosphatase 107 U/L (45-117); Anion Gap 7 (5-15); BUN 19 mg/dL (7-18); BUN/Creat Ratio 20.4 RATIO (10-20); Calcium,Total 8.7 mg/dL (8.5-10.1); Chloride 109 mmol/L (98-107); Creatinine, Serum 0.93 mg/dL (0.70-1.30); EST Glomerular Filtration Rate 89 mL/min (>60); Est Glom Filt Rate - Afr Amer 108 mL/min (>60); Estimated Creatinine Clearance 77.15 ml/min; Globulin 3.3 g/dL (2.2-4.2); Glucose 89 mg/dL (74-106); Lipase 69 U/L (73-393); Potassium 4.1 mmol/L (3.5-5.1); Protein, Total 6.9 g/dL (6.4-8.2); Sodium Level 144 mmol/L (136-145)
[2018-04-04 16:47] LABS: POSITIVE COUNT NO; POSITIVE DIFFERENTIAL NO; POSITIVE MORPHOLOGY NO
[2018-04-04 17:00] VITALS: BP 101/65; PULSE 57; RESP 17; TEMP 36.6; O2SAT 98
--- NOTE | 2018-04-04 17:29 | ED.VISSUMM ---
- ER Visit Summary Date of Service: 04/04/18 Chief Complaint: Nausea vomiting and diarrhea History of Present Illness: The patient is a 57 M who presents with nausea vomiting and diarrhea for the past week. Patient states she has had intermittent abdominal pain as well. Patient states his nausea and vomiting is undigested food in stomach contents. Patient states his diarrhea is watery. Patient denies any hematemesis or coffee-ground emesis. Patient denies any melena or hematochezia. Patient states his pain is stabbing and intermittent. Patient states the pain is over the upper abdomen. Patient denies any chest pain or shortness of breath. Physical Examination: Vital signs are stable. Patient is afebrile. Patient is in no acute distress. Oral mucosa is pink and moist. Neck is supple. Trachea is midline. There is no JVD noted. Heart was regular rate and rhythm. Lungs are clear and equal bilateral. Abdomen is soft. Bowel sounds are normal. There is left upper quadrant tenderness. There is no rebound or guarding noted. Cranial nerves II through XII are intact. There are no focal motor or sensory deficits noted. The remaining physical exam is within normal limits. Test Results: CBC shows white blood cell count 3.6. Platelets were 144. Comprehensive metabolic profile was essentially within normal limits. CT scan of the abdomen and pelvis was obtained. There is no acute intra-abdominal process noted. Emergency Department Course and Treatment: Patient was given IV fluids and Zofran here. Patient felt better on reevaluation. I left a message with the patient's oncologist at [facility]. I reported the labs to him. Patient was given a prescription for Zofran. 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 Patient was instructed to return if worse in any way. Patient understood and was agreeable with the plan. All questions were answered. Disposition: Discharged home Impression: 1. Nausea vomiting and diarrhea 2. History of CML This note was generated with [employer] dictation software. It may contain incorrect words, spelling, and punctuation that were not noted in review of the chart prior to signing ED Disposition - Plan for ED Patient: Disposition: Home or Assisted Living Chief Complaint: Abd Pain Diagnosis: Nausea vomiting and diarrhea Instructions: ED Diet Vomiting Diarrhea Prescriptions: Ondansetron [Zofran Odt] 4 mg PO Q8H PRN PRN #10 tab PRN Reason: Nausea Referrals: Bella Ribeiro MD [Primary Care Provider] -
--- NOTE | 2018-04-04 17:33 | ED.DCSUM_ITS ---
- ER Visit Summary Date of Service: 04/04/18 Chief Complaint: Nausea vomiting and diarrhea History of Present Illness: The patient is a 57 M who presents with nausea vomiting and diarrhea for the past week. Patient states she has had intermittent abdominal pain as well. Patient states his nausea and vomiting is undigested food in stomach contents. Patient states his diarrhea is watery. Patient denies any hematemesis or coffee-ground emesis. Patient denies any melena or hematochezia. Patient states his pain is stabbing and intermittent. Patient states the pain is over the upper abdomen. Patient denies any chest pain or shortness of breath. Physical Examination: Vital signs are stable. Patient is afebrile. Patient is in no acute distress. Oral mucosa is pink and moist. Neck is supple. Trachea is midline. There is no JVD noted. Heart was regular rate and rhythm. Lungs are clear and equal bilateral. Abdomen is soft. Bowel sounds are normal. There is left upper quadrant tenderness. There is no rebound or guarding noted. Cranial nerves II through XII are intact. There are no focal motor or sensory deficits noted. The remaining physical exam is within normal limits. Test Results: CBC shows white blood cell count 3.6. Platelets were 144. Comprehensive metabolic profile was essentially within normal limits. CT scan of the abdomen and pelvis was obtained. There is no acute intra-abdominal process noted. Emergency Department Course and Treatment: Patient was given IV fluids and Zofran here. Patient felt better on reevaluation. I left a message with the patient's oncologist at [facility]. I reported the labs to him. Patient was given a prescription for Zofran. 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 Patient was instructed to return if worse in any way. Patient understood and was agreeable with the plan. All questions were answered. Disposition: Discharged home Impression: 1. Nausea vomiting and diarrhea 2. History of CML This note was generated with [employer] dictation software. It may contain incorrect words, spelling, and punctuation that were not noted in review of the chart prior to signing ED Disposition - Plan for ED Patient: Disposition: Home or Assisted Living Chief Complaint: Abd Pain Diagnosis: Nausea vomiting and diarrhea Instructions: ED Diet Vomiting Diarrhea Prescriptions: Ondansetron [Zofran Odt] 4 mg PO Q8H PRN PRN #10 tab PRN Reason: Nausea Referrals: Bella Ribeiro MD [Primary Care Provider] -
[2018-04-04 17:46] LABS: Bacteria 0 SEEN /hpf (None Seen); Red Blood Cells-Urine 0 SEEN /hpf (0-5); Squamous Epithelial Cells - UA 0 SEEN /hpf (0-5); White Blood Cells 0 SEEN /hpf (0-5)
[2018-04-04 17:47] LABS: Color, Urine Yellow (Yellow); Glucose, Dipstick Normal (Normal); Ketone-Dipstick Negative (Negative); Leukocyte Esterase-Dipstick Negative /ul (Negative); Nitrite-Dipstick Negative (Negative); Occult Blood-Urine Negative /ul (Negative); Protein-Dipstick 15 mg/dl (Negative); Specific Gravity, Urine 1.025 (1.002-1.030); Urine Bilirubin Dipstick Negative (Negative); Urine Clarity Clear (Clear); Urine Urobilinogen 1 mg/dl (Normal)
[2018-04-04 18:04] VITALS: BP 101/65; PULSE 68; RESP 15; O2SAT 97
[2018-04-04 18:05] LABS: Mucous, Urine 1+ /hpf (<or=2+)
== END 2018-04-04 18:04 | disposition home or self-care (01) ==
PROVIDERS: Emergency Provider Emergency Medicine; Family Provider Internal Medicine; PCP Internal Medicine
DX: R11.2 Nausea with vomiting, unspecified (principal); R19.7 Diarrhea, unspecified; Z85.6 Personal history of leukemia
CPT/HCPCS: 74176; 80053; 81001; 83690; 85025; 96361; 96374; 96376; 99283; J7030; A4216; J2405

== ENCOUNTER 2018-05-29 21:02 | Emergency (ER) | payer MEDICARE, SELFPAY ==
[2018-05-29 21:03] VITALS: BP 119/72; PULSE 83; RESP 16; TEMP 36.9; O2SAT 96; BMI 25.0
[2018-05-29] MEDS: Ipratropium/Albuterol Sulfate 3 ML AMPUL.NEB INHALATION (21:55)
[2018-05-29] MEDS: Albuterol 2.5 MG/3 ML VIAL.NEB. INHALATION (21:55)
[2018-05-29 21:56] VITALS: PULSE 90; RESP 16
--- NOTE | 2018-05-29 22:15 | RAD_ITS ---
STUDY: X-RAY CHEST REASON FOR EXAM: Male, 57 years old. Productive cough and wheezing TECHNIQUE: PA and lateral views of the chest. COMPARISON: 01/17/2018. FINDINGS: Mild atelectatic changes in the left lung base. There is a vague density in the right lung base probably due to summation of shadows. There is no demonstrated pleural abnormality. Normal size heart. Normal mediastinum and logan. Normal visualized pulmonary arteries. Normal visualized aortic arch and descending thoracic aorta. There is an increased kyphosis of the thoracic spine. Normal visualized ribs, clavicles, and shoulders. There is no demonstrated abnormality of the visualized soft tissue structures of the upper abdomen. RAD/Chest PA and Lateral IMPRESSION: Mild left basilar atelectatic changes. Electronically Signed: Thien Mahan MD at 22:32 EST Tel , Service support ,
--- NOTE | 2018-05-29 22:42 | ED.VISSUMM ---
- ER Visit Summary Date of Service: 05/29/18 Chief Complaint: Productive cough of brown colored sputum History of Present Illness: The patient is a 57 M who reports illness started 2 weeks ago. He had upper respiratory type symptoms. He now has a productive cough of brown dark sputum. No blood was noted. He does complain of mild headache. He denies rhinorrhea, earache. Does complain of sore throat and change in voice. He reports dyspnea with exertion. He is a non-smoker. He states is never smoked. He denies any cardiac symptoms. He denies GI symptoms. He denies leg pain, swelling discoloration. Please read written note for complete detail Physical Examination: Vital signs are normal. He has a hoarse voice. Nares patent no discharge. TMs normal. Posterior pharynx erythema or exudate. Trachea midline. There is no stridor. There is no cervical lymphadenopathy. Lungs reveal wheezing bilaterally with rales left lower base. Heart is regular without murmur, gallop or rub. Abdomen soft nontender. There is no asymmetry, swelling, discoloration, leg vein distention, palpable cords or tenderness along the distribution of the deep venous system. Neuro exam is nonfocal. Test Results: Two-view chest x-ray reveals what I believe to be infiltrate left lower lobe. Emergency Department Course and Treatment: DuoNeb, albuterol and p.o. antibiotics. Since patient vitals are normal is 57 years of age he is safe for outpatient management. Treatment Plan: Doxycycline and patient's been instructed to use his inhaler more frequently than twice a day. Disposition: Discharge to home Impression: 1. Left lower lobe pneumonia 2. Bronchospasm This note was generated with [employer] dictation software. It may contain incorrect words, spelling, and punctuation that were not noted in review of the chart prior to signing ED Disposition - Plan for ED Patient: Disposition: Home or Assisted Living Instructions: ED Pneumonia Adult Prescriptions: Doxycycline Hyclate [Vibramycin] 100 mg PO BID #14 capsule Referrals: Bella Ribeiro MD [Primary Care Provider] - 3-5 Days Additional Instructions: Your prescription was electronically transmitted to [facility] pharmacy on [address] your does a pharmacy of choice. Take antibiotics until gone. Use your nebulizer or inhaler more frequently recommend every 2-4 hours while awake for the next 2-3 days.
--- NOTE | 2018-05-29 22:47 | ED.DCSUM_ITS ---
- ER Visit Summary Date of Service: 05/29/18 Chief Complaint: Productive cough of brown colored sputum History of Present Illness: The patient is a 57 M who reports illness started 2 weeks ago. He had upper respiratory type symptoms. He now has a productive cough of brown dark sputum. No blood was noted. He does complain of mild headache. He denies rhinorrhea, earache. Does complain of sore throat and change in voice. He reports dyspnea with exertion. He is a non-smoker. He states is never smoked. He denies any cardiac symptoms. He denies GI symptoms. He denies leg pain, swelling discoloration. Please read written note for complete detail Physical Examination: Vital signs are normal. He has a hoarse voice. Nares patent no discharge. TMs normal. Posterior pharynx erythema or exudate. Trachea midline. There is no stridor. There is no cervical lymphadenopathy. Lungs reveal wheezing bilaterally with rales left lower base. Heart is regular without murmur, gallop or rub. Abdomen soft nontender. There is no asymmetry, swelling, discoloration, leg vein distention, palpable cords or tenderness along the distribution of the deep venous system. Neuro exam is nonfocal. Test Results: Two-view chest x-ray reveals what I believe to be infiltrate left lower lobe. Emergency Department Course and Treatment: DuoNeb, albuterol and p.o. antibiotics. Since patient vitals are normal is 57 years of age he is safe for outpatient management. Treatment Plan: Doxycycline and patient's been instructed to use his inhaler more frequently than twice a day. Disposition: Discharge to home Impression: 1. Left lower lobe pneumonia 2. Bronchospasm This note was generated with [employer] dictation software. It may contain incorrect words, spelling, and punctuation that were not noted in review of the chart prior to signing ED Disposition - Plan for ED Patient: Disposition: Home or Assisted Living Instructions: ED Pneumonia Adult Prescriptions: Doxycycline Hyclate [Vibramycin] 100 mg PO BID #14 capsule Referrals: Bella Ribeiro MD [Primary Care Provider] - 3-5 Days Additional Instructions: Your prescription was electronically transmitted to [facility] pharmacy on [address] your does a pharmacy of choice. Take antibiotics until gone. Use your nebulizer or inhaler more frequently recommend every 2-4 hours while awake for the next 2-3 days.
[2018-05-29] MEDS: Doxycycline 100 MG CAPSULE PO (22:55)
[2018-05-29 23:10] VITALS: BP 120/68; PULSE 90; RESP 16; O2SAT 97
== END 2018-05-29 23:24 | disposition home or self-care (01) ==
PROVIDERS: Emergency Provider Emergency Medicine; Family Provider Internal Medicine; PCP Internal Medicine
DX: J18.9 Pneumonia, unspecified organism (principal); J98.01 Acute bronchospasm; E66.9 Obesity, unspecified; Z68.25 Body mass index [BMI] 25.0-25.9, adult
CPT/HCPCS: 71046; 94640; 99282

== ENCOUNTER 2018-09-01 16:35 | Observation (INO) | payer MEDICARE, MEDICAID, SELFPAY ==
[2018-09-01] VITALS (7 sets, daily range): BP systolic 97–106; BP diastolic 58–68; PULSE 48–80; RESP 12–18; TEMP 36.6–36.7; O2SAT 97–98; BMI 23.8; BMI 23.9
--- NOTE | 2018-09-01 17:21 | CT_ITS ---
STUDY: CT BRAIN WITHOUT CONTRAST REASON FOR EXAM: Male, 57 years old. Vertigo RADIATION DOSAGE (If Supplied By Facility): CTDIvol = ( 44.99 ) mGy, DLP = ( 880.47 ) mGycm TECHNIQUE: Transaxial CT imaging of the brain was performed without administration of intravenous contrast material. Individualized dose optimization techniques were used for this CT. COMPARISON: 11/17/2017 FINDINGS: Normal soft tissue structures. Normal calvarium. There is mild cerebral atrophy with widening of the extra-axial spaces and ventricular dilatation. There are areas of decreased attenuation within the white matter tracts of the supratentorial brain, consistent with microvascular disease changes. Normal basal ganglia and thalami. Normal brainstem. Normal cerebellum. There is no intracranial hemorrhage. There are no findings of an acute ischemic infarction. There is mucoperiosteal inflammatory disease of the paranasal sinuses consistent with mild chronic sinusitis. CT/Brain/Head without Contrast IMPRESSION: Chronic involutional changes of the brain. Electronically Signed: Dany Franklin DO at 18:33 EDT Tel , Service support ,
--- NOTE | 2018-09-01 17:21 | EKG12_ITS ---
Test Reason : DIZZINESS Blood Pressure : / mmHG Vent. Rate : 061 BPM Atrial Rate : 061 BPM P-R Int : 168 ms QRS Dur : 086 ms QT Int : 390 ms P-R-T Axes : 029 -21 014 degrees QTc Int : 392 ms Sinus rhythm with Premature atrial complexes Otherwise normal ECG Confirmed by LIDYA SALTER, MIGUEL ÁNGEL ([id number]), loan expeditor JENNI SCOTT ([id number]) on 09/03/2018 11:47:20 AM Referred By: PRABHA Confirmed By:MIGUEL ÁNGEL BOSE MD
--- NOTE | 2018-09-01 17:39 | ED.VISSUMM ---
- ER Visit Summary Date of Service: 09/01/18 Chief Complaint: Dizziness History of Present Illness: The patient is a 57 M presenting with dizziness and lightheadedness. He states he has a spinning sensation and also feels lightheaded. He has not passed out. He denies chest pain or shortness of breath. He has fallen 3 times today. He did hit his head with one of the falls. He did not lose consciousness with the fall. He states he has a constant spinning sensation that is worsened with standing. Denies other complaints. Physical Examination: Vitals are stable. Patient is afebrile. Alert no acute distress. HEENT exam is unremarkable. Neck is supple. Lungs are clear and equal bilaterally. Heart is regular rate and rhythm. Abdomen is soft nontender nondistended. Extremities are unremarkable. Skin is warm and dry. No focal neurologic deficit. NIH 0 Remainder of exam is unremarkable. Emergency Department Course and Treatment: EKG is sinus rate of 61 with no acute ischemic changes. Patient was given IV fluids, Valium. CBC normal except for white count 4.1, platelets 116. Chemistries show glucose 134, BUN 21. Troponin is negative. CT head shows chronic changes. He was unable to stand for orthostatic vital signs due to dizziness. On reevaluation he complaint continues to complain of both lightheadedness and vertigo. He is unable to stand secondary to his dizziness. Discussed with the hospitalist for admission. Disposition: Observation Impression: Intractable vertigo This note was generated with [employer] dictation software. It may contain incorrect words, spelling, and punctuation that were not noted in review of the chart prior to signing ED Disposition - Plan for ED Patient: Referrals: Bella Ribeiro MD [Primary Care Provider] -
[2018-09-01] MEDS: diazePAM 5 MG Tablet PO (17:52)
[2018-09-01] MEDS: 0.9% Normal Saline 1,000 ML 1000 ML IV (17:52)
[2018-09-01 18:02] LABS: Absolute Neutrophil Count 2.3 X10^3/uL (2.0-7.7); Basophil# 0.01 X10^3/uL; Basophil% 0.2 % (0-1); Eosinophil# 0.07 X10^3/uL; Eosinophils% 1.7 % (0-5); Hematocrit 41.7 % (40-54); Lymphocyte % 34.6 % (19-41); Mean Corp Hgb Conc 33.6 g/gl (32-36); Mean Corpuscular Hgb 30.6 pg (27.0-32.0); Mean Corpuscular Volume 91.2 fL (80-94); Mean Platelet Vol. 10.2 fl (6.2-12.0); Monocyte# 0.28 X10^3/uL; Monocyte% 6.9 % (0-10); Neutrophil # 2.28 X10^3/uL (2.7-7.7); Neutrophil % 56.4 % (47-70); Platelet Count 116 K/mm3 (150-450); RBC Distribution Width CV 13.2 % (11.6-14.6); RBC Distribution Width SD 43.2 fl (35.1-43.9); Red Blood Count 4.57 M/mm3 (4.6-6.2); White Blood Count 4.1 K/mm3 (4.4-11.0)
[2018-09-01 18:03] LABS: POSITIVE COUNT NO; POSITIVE DIFFERENTIAL NO; POSITIVE MORPHOLOGY NO
[2018-09-01 18:14] LABS: Anion Gap 3 (5-15); BUN 21 mg/dL (7-18); BUN/Creat Ratio 21.6 RATIO (10-20); Calcium,Total 8.6 mg/dL (8.5-10.1); Chloride 108 mmol/L (98-107); Creatinine, Serum 0.97 mg/dL (0.70-1.30); EST Glomerular Filtration Rate 84 mL/min (>60); Est Glom Filt Rate - Afr Amer 102 mL/min (>60); Estimated Creatinine Clearance 73.97 ml/min; Glucose 134 mg/dL (74-106); Potassium 3.8 mmol/L (3.5-5.1); Sodium Level 142 mmol/L (136-145)
--- NOTE | 2018-09-01 20:44 | HP.PCM_ITS ---
Problem List (1) Vertigo Status: Acute (2) CML (chronic myelocytic leukemia) Status: Chronic History of Present Illness Date of Admission: 09/01/18 Chief Complaint: vertigo The patient is a 57 year old M with a significant history of CML; basal cell carcinoma of the face status post surgery; probable COPD who presented to the emergency department with vertigo. Associated with symptoms is lightheadedness. Reportedly he has fallen 3 times on the day of presentation because of vertigo and lightheadedness. At one point he fell onto his bed; one time he fell onto a laundry basket; and one time he fell while holding a coffee in a cup. Reportedly he felt dizzy while being transferred onto a bed for CT at the hospital. Further, he is unable to use his eyes to focus. He denies any nausea or vomiting. He denies any recent upper respiratory infection. . Past Medical History Past Medical History (Chronic Problems): Chronic Problems (Last Updated 09/01/18 @ 21:22 by Suhas Olmedo MD) CML (chronic myelocytic leukemia) (Chronic) Medical History: Medical History (Last Reviewed 09/02/18 @ 00:06 by Suhas Olmedo MD) CML (chronic myeloid leukemia) C92.10 Allergies No Known Allergies Allergy (Verified 09/01/18 16:35) Home Medications: Ambulatory Orders Medication Instructions Recorded Albuterol Inhaler [Ventolin Hfa 1 - 2 puff INHALATION Q4H PRN PRN 05/06/17 (SP)] Albuterol Aerosols [Ventolin 2.5 mg INHALATION Q4H PRN #25 vial 01/04/18 Aerosols] Fluticasone/Vilanterol [Breo 1 puff INHALATION DAILY 01/04/18 Ellipta 200-25 Mcg INH] Surgical History: - - Facial surgery to remove basal cell carcinoma. Nasal reconstruction Lives: Roommate Smoking Status: Never smoker Alcohol: Rare - *Family History Maternal History Items: Dementia Paternal History Items: Cancer - His father Lung cancer that metastasized to his brain. His father was a smoker. Review of Systems Constitutional: Denies: Chills, Fever, Weight Change HEENT: Denies: Head Aches, Sinus Congestion, Sinus Drainage Cardiovascular: Reports: Light Headedness. Denies: Chest Pain, Palpitations Respiratory: Denies: Cough, Shortness of breath at rest, Sputum production Gastrointestinal: Denies: Abdominal Pain, Nausea, Vomiting Genitourinary: Denies: Dysuria Musculoskeletal: Denies: Joint Pain, Joint Tenderness Skin: Denies: Rash, Wounds Neurological: Reports: Blurred vision. Denies: Focal weakness, Numbness, Tingling Psychiatric: Denies: Anxiety, Depression, Homicidal Ideations, Suicidal Ideations Hematologic/ Lymphatic: Denies: Easy Bruising, Easy Bleeding VTE Information - Inpt Only VTE Present on Admission: No VTE Mechan Device Prophylaxis: None VTE Pharm Prophylaxis ordered?: Yes Patient Problems: Active and Suspected Problems (Last Updated 09/01/18 @ 21:22 by Suhas Olmedo MD) Vertigo (Acute) - Physical Exam General: Alert, Oriented x3, Cooperative HEENT: Atraumatic, PERRLA, EOMI, Normocephalic, - - Right ear with cerumen obscuring the eardrum. Left ear with pearly eardrum. Neck: Supple, No JVD, Negative Carotid Bruits Lungs: Clear to auscultation, Normal air movement Cardiovascular: Regular rate, No murmurs Abdomen: Bowel Sounds Present, Soft, Non Tender Extremities: No edema, Capillary Refill Less than 3 Seconds Skin: No rashes, No breakdown Musculoskeletal: No Tenderness to Palpation of Joints or Extremities Neurological: Cranial nerves II-XII grossly intact, - - Unable to do Janette- Hallpike maneuver because of patient's had vertigo on sitting at the edge of the bed. Motor strength 4 out of 5 in bilateral upper extremities. 5 out of 5 in bilateral lower extremities. Psych/Mental Status: Normal Affect, Appropriate Vital Signs Temp Pulse Resp BP Pulse Ox 98.1 F 48 L 16 102/63 97 09/01/18 16:36 09/01/18 20:00 09/01/18 20:00 09/01/18 19:16 09/01/18 20:00 Oxygen Delivery Method Room Air Weight: 64.954 kg Body Mass Index (BMI) 23.8 Laboratory Tests Past 24 Hrs 09/01/18 09/01/18 17:15 17:15 WBC 4.1 L RBC 4.57 L Hgb 14.0 Hct 41.7 MCV 91.2 MCH 30.6 MCHC 33.6 RDW 13.2 RDW Differential 43.2 Plt Count 116 L MPV 10.2 Immature Gran % (Auto) 0.200 Neut % (Auto) 56.4 Lymph % (Auto) 34.6 [place] % (Auto) 6.9 Eos % (Auto) 1.7 Baso % (Auto) 0.2 Absolute Neuts (auto) 2.3 Absolute Lymphs (auto) 1.40 Total Counted Not Reportable Sodium 142 Potassium 3.8 Chloride 108 H Carbon Dioxide 31.0 Anion Gap 3 L BUN 21 H Creatinine 0.97 Estim Creat Clear Calc 73.97 Est GFR (MDRD) Af Amer 102 Est GFR (MDRD) Non-Af 84 BUN/Creatinine Ratio 21.6 H Glucose 134 H Calcium 8.6 Troponin I < 0.015 Assessment/Plan All Active Problems (Last Updated 09/01/18 @ 21:22 by Suhas Olmedo MD) Vertigo (Acute) The patient is a 57 year old M with a significant history of CML; basal cell carcinoma of the face status post surgery; probable COPD who presented to the emergency department with vertigo; lightheadedness; multiple falls due to vertigo and lightheadedness; and unable to focus with his eyes. Vertigo Order MRI/MRA head and neck. Schedule meclizine 3 times daily. Diazepam p.o. as needed PT/OT to work with patient. Fasting lipids ordered. Probable COPD He reported that a doctor said he might have COPD. Albuterol inhaler continued Breo Ellipta continued. DVT prophylaxis Subcutaneous Lovenox. . Code Visit OBSV E&M: 24746 Initial observation care L3
--- NOTE | 2018-09-01 22:37 | MRI_ITS ---
STUDY: MRI BRAIN WITHOUT CONTRAST REASON FOR EXAM: Male, 57 years old. Vertigo TECHNIQUE: Standardized multiplanar fat and water weighted pulse sequences were obtained. COMPARISON: 01 September 2018, and November 2017 FINDINGS: There is no acute infarct. There are no focal parenchymal lesions, mass effect, midline shift, hydrocephalus or herniation. There is a small right retrocerebellar arachnoid cyst, a benign congenital anatomic variant. Appearance is similar to prior CTs. MRI/Brain without Contrast IMPRESSION: Unremarkable MRI brain. Electronically Signed: Josette Adams, at 19:07 EDT Tel , Service support ,
--- NOTE | 2018-09-01 22:37 | MRI_ITS ---
STUDY: MRA NECK WITH AND WITHOUT CONTRAST REASON FOR EXAM: Male, 57 years old. Vertigo TECHNIQUE: 3-D [id number]-lg-[id number] (TOF) imaging was performed in an 1.5 T MRI scanner. 13 IV Dotarem was administered for the contrast enhanced images. COMPARISON: None. FINDINGS: Assessment of intrathoracic portions of the great vessels is not possible due to limitations of technique. Cervical segments are assessable. Bilateral mid to distal common carotid arteries, internal carotid arteries, external carotid arteries and bilateral vertebral arteries are patent. MRI/MRA Neck WITH and W/O Contrast IMPRESSION: Patent cervical arteries. Electronically Signed: Josette Adams, at 20:21 EDT Tel , Service support ,
--- NOTE | 2018-09-01 22:37 | MRI_ITS ---
STUDY: MRA OF THE HEAD WITHOUT CONTRAST REASON FOR EXAM: Male, 57 years old. Vertigo left-sided weakness TECHNIQUE: 3-D ivms-co-ttqqjr (TOF) imaging was performed with MIPs. The study was performed unenhanced. COMPARISON: None. FINDINGS: Bilateral base of skull carotids are normal. Bifurcations, proximal middle cerebral arteries and branches are patent. There is congenitally variant anatomy of the ACAs. 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 All branches are patent. Posterior communicating arteries are not seen. Bilateral posterior cerebral arteries, superior cerebellar arteries, basilar artery and bilateral vertebral arteries are patent. MRI/MRA Head ONLY without Contrast IMPRESSION: Unremarkable [place] patent proximal branches. Electronically Signed: Josette Adams, at 19:19 EDT Tel , Service support ,
[2018-09-02] VITALS (14 sets, daily range): BP systolic 88–101; BP diastolic 47–59; PULSE 54–70; RESP 17–18; TEMP 36.6–36.8; O2SAT 94–97
[2018-09-02] MEDS: Meclizine 12.5 MG Tablet PO ×4 (00:08→21:52)
[2018-09-02 06:57] LABS: Cholesterol 161 mg/dL (200); High Density Lipoprotein 30 mg/dL; Triglycerides 229 mg/dL; Very Low Density Lipoprotein 46 mg/dL (5-40)
[2018-09-02] MEDS: Budesonide Respules 0.5 MG/2 ML AMPUL.NEB. INHALATION ×2 (07:30→18:44)
[2018-09-02] MEDS: Albuterol 2.5 MG/3 ML VIAL.NEB. INHALATION ×2 (07:30→18:44)
--- NOTE | 2018-09-02 09:51 | CM.UR ---
Met face to face with patient at this time. Denies any needs at this time. discussed copd diagnosis. States he does have nebulizer and CPAP. Asked where he got supplies. States used to get them at [facility] but now no where. Offered list of in-network providers for him and he requested I go ahead. Printed off [employer] list of in-network providers (utilizing his ID number) and gave to patient so he can get new supplies for resp equipment. Ollie Frias RN, CCM.
[2018-09-02] MEDS: Enoxaparin 40 MG/0.4 ML Syringe SC (10:30)
[2018-09-02] MEDS: 0.9% NaCl Peripheral Flush Adult/Peds IV ×2 (11:41→15:05)
--- NOTE | 2018-09-02 12:56 | PCM.PN.HOSP ---
Patient Problems: Active and Suspected Problems (Last Reviewed 09/02/18 @ 00:06 by Suhas Olmedo MD) Vertigo (Acute) Subjective: Still dizzy whenever he tries to move. He has not tried to get up today yet, but every time he moves his head he gets a little bit dizzy. Vitals/I&O's: Vital Signs Temp Pulse Resp BP Pulse Ox 98.0 F 60 17 101/47 L 96 09/02/18 12:42 09/02/18 12:42 09/02/18 12:42 09/02/18 12:42 09/02/18 12:42 Oxygen Delivery Method Room Air Weight: 143 lb 4.807 oz Body Mass Index (BMI) 23.8 Intake and Output for Last 24 Hours 08/31/18 09/01/18 09/02/18 23:59 23:59 23:59 Intake Total 985 / 985 Output Total 775 / 775 Balance 210 / 210 General: Alert, Oriented x3, Cooperative, No apparent distress HEENT: Atraumatic, PERRLA, EOMI, Normocephalic Oral: Moist Mucosa Neck: Supple, No JVD Lungs: Clear to auscultation, Normal air movement, No rhonchi, No wheeze, No rales Cardiovascular: Regular rate, Regular Rhythm, Normal S1, Normal S2, No murmurs Abdomen: Soft, Non Tender, Non-Distended, No Hepato-splenomegaly Extremities: No edema, Capillary Refill Less than 3 Seconds Skin: No rashes, No breakdown Neurological: Neuro grossly intact, Sensory exam intact to light touch and pain, Coordination normal Psych/Mental Status: Normal Affect, Appropriate Laboratory Results 09/01/18 17:15: WBC 4.1 L, RBC 4.57 L, Hgb 14.0, Hct 41.7, MCV 91.2, MCH 30.6, MCHC 33.6, RDW 13.2, RDW Differential 43.2, Plt Count 116 L, MPV 10.2, Immature Gran % (Auto) 0.200, Neut % (Auto) 56.4, Lymph % (Auto) 34.6, [place] % (Auto) 6.9, Eos % (Auto) 1.7, Baso % (Auto) 0.2, Absolute Neuts (auto) 2.3, Absolute Lymphs (auto) 1.40, Total Counted Not Reportable 09/01/18 17:15: Sodium 142, Potassium 3.8, Chloride 108 H, Carbon Dioxide 31.0, Anion Gap 3 L, BUN 21 H, Creatinine 0.97, Estim Creat Clear Calc 73.97, Est GFR (MDRD) Af Amer 102, Est GFR (MDRD) Non-Af 84, BUN/Creatinine Ratio 21.6 H, Glucose 134 H, Calcium 8.6, Troponin I < 0.015 09/02/18 05:35: Triglycerides 229 H, Cholesterol 161, LDL Cholesterol 85, VLDL Cholesterol 46 H, HDL Cholesterol 30 L Current Medications Albuterol Sulfate (Ventolin Aerosols) 2.5 mg INHALATION Q6HWA.RT [facility] Last Admin: 09/02/18 07:30 Dose: 2.5 mg Albuterol Sulfate (Ventolin Aerosols) 2.5 mg INHALATION Q2H PRN PRN PRN Reason: DYSPNEA Budesonide (Pulmicort Aerosol) 0.5 mg INHALATION Q12H.RT [facility] Last Admin: 09/02/18 07:30 Dose: 0.5 mg Dextrose (D50w Syringe) 0 gm IV X1 PRN; Protocol PRN Reason: Hypoglycemia Diazepam (Valium) 5 mg PO Q8H PRN PRN PRN Reason: Vertigo Enoxaparin Sodium (Lovenox) 40 mg SC DAILY@1000 [facility] Last Admin: 09/02/18 10:30 Dose: 40 mg Glucagon () 1 mg IM .X1 PRN PRN Reason: Hypoglycemia Meclizine HCl (Antivert) 12.5 mg PO TID [facility] Last Admin: 09/02/18 05:06 Dose: 12.5 mg Melatonin (Melatonin) 3 mg PO QHS PRN PRN PRN Reason: INSOMNIA Nutritional Formula (Lactose Free) (Ensure Enlive) 120 ml PO 4X/DAY [facility] Last Admin: 09/02/18 10:29 Dose: 120 ml Ondansetron HCl (Zofran) 4 mg IV Q8H PRN PRN PRN Reason: NAUSEA/VOMITING Sodium Chloride () 5 - 15 ml IV UD PRN PRN Reason: SALINE FLUSH Last Admin: 09/02/18 11:41 Dose: 10 ml Medical Necessity - Tobacco Use Smoking Status: Never smoker Assessment/Plan All Active Problems (Last Reviewed 09/02/18 @ 00:06 by Suhas Olmedo MD) Vertigo (Acute) 1. Vertigo status post fall x3 -MRI and MRA of head and neck are pending, they were going to be done today however the MRI machine was broken -Continue with the meclizine for now -Valium as needed -PT/OT 2. Probable COPD -Does not appear to have had any PFTs but was told by his doctor that he might have COPD -Currently on Brio Ellipta and albuterol DVT: Lovenox Code Visit OBSV E&M: 60309 Subsequent observation care L2
--- NOTE | 2018-09-02 13:00 | PN_ITS ---
Patient Problems: Active and Suspected Problems (Last Reviewed 09/02/18 @ 00:06 by Suhas Olmedo MD) Vertigo (Acute) Subjective: Still dizzy whenever he tries to move. He has not tried to get up today yet, but every time he moves his head he gets a little bit dizzy. Vitals/I&O's: Vital Signs Temp Pulse Resp BP Pulse Ox 98.0 F 60 17 101/47 L 96 09/02/18 12:42 09/02/18 12:42 09/02/18 12:42 09/02/18 12:42 09/02/18 12:42 Oxygen Delivery Method Room Air Weight: 143 lb 4.807 oz Body Mass Index (BMI) 23.8 Intake and Output for Last 24 Hours 08/31/18 09/01/18 09/02/18 23:59 23:59 23:59 Intake Total 985 / 985 Output Total 775 / 775 Balance 210 / 210 General: Alert, Oriented x3, Cooperative, No apparent distress HEENT: Atraumatic, PERRLA, EOMI, Normocephalic Oral: Moist Mucosa Neck: Supple, No JVD Lungs: Clear to auscultation, Normal air movement, No rhonchi, No wheeze, No rales Cardiovascular: Regular rate, Regular Rhythm, Normal S1, Normal S2, No murmurs Abdomen: Soft, Non Tender, Non-Distended, No Hepato-splenomegaly Extremities: No edema, Capillary Refill Less than 3 Seconds Skin: No rashes, No breakdown Neurological: Neuro grossly intact, Sensory exam intact to light touch and pain, Coordination normal Psych/Mental Status: Normal Affect, Appropriate Laboratory Results 09/01/18 17:15: WBC 4.1 L, RBC 4.57 L, Hgb 14.0, Hct 41.7, MCV 91.2, MCH 30.6, MCHC 33.6, RDW 13.2, RDW Differential 43.2, Plt Count 116 L, MPV 10.2, Immature Gran % (Auto) 0.200, Neut % (Auto) 56.4, Lymph % (Auto) 34.6, [place] % (Auto) 6.9, Eos % (Auto) 1.7, Baso % (Auto) 0.2, Absolute Neuts (auto) 2.3, Absolute Lymphs (auto) 1.40, Total Counted Not Reportable 09/01/18 17:15: Sodium 142, Potassium 3.8, Chloride 108 H, Carbon Dioxide 31.0, Anion Gap 3 L, BUN 21 H, Creatinine 0.97, Estim Creat Clear Calc 73.97, Est GFR (MDRD) Af Amer 102, Est GFR (MDRD) Non-Af 84, BUN/Creatinine Ratio 21.6 H, Glucose 134 H, Calcium 8.6, Troponin I < 0.015 09/02/18 05:35: Triglycerides 229 H, Cholesterol 161, LDL Cholesterol 85, VLDL Cholesterol 46 H, HDL Cholesterol 30 L Current Medications Albuterol Sulfate (Ventolin Aerosols) 2.5 mg INHALATION Q6HWA.RT [facility] Last Admin: 09/02/18 07:30 Dose: 2.5 mg Albuterol Sulfate (Ventolin Aerosols) 2.5 mg INHALATION Q2H PRN PRN PRN Reason: DYSPNEA Budesonide (Pulmicort Aerosol) 0.5 mg INHALATION Q12H.RT [facility] Last Admin: 09/02/18 07:30 Dose: 0.5 mg Dextrose (D50w Syringe) 0 gm IV X1 PRN; Protocol PRN Reason: Hypoglycemia Diazepam (Valium) 5 mg PO Q8H PRN PRN PRN Reason: Vertigo Enoxaparin Sodium (Lovenox) 40 mg SC DAILY@1000 [facility] Last Admin: 09/02/18 10:30 Dose: 40 mg Glucagon () 1 mg IM .X1 PRN PRN Reason: Hypoglycemia Meclizine HCl (Antivert) 12.5 mg PO TID [facility] Last Admin: 09/02/18 05:06 Dose: 12.5 mg Melatonin (Melatonin) 3 mg PO QHS PRN PRN PRN Reason: INSOMNIA Nutritional Formula (Lactose Free) (Ensure Enlive) 120 ml PO 4X/DAY [facility] Last Admin: 09/02/18 10:29 Dose: 120 ml Ondansetron HCl (Zofran) 4 mg IV Q8H PRN PRN PRN Reason: NAUSEA/VOMITING Sodium Chloride () 5 - 15 ml IV UD PRN PRN Reason: SALINE FLUSH Last Admin: 09/02/18 11:41 Dose: 10 ml Medical Necessity - Tobacco Use Smoking Status: Never smoker Assessment/Plan All Active Problems (Last Reviewed 09/02/18 @ 00:06 by Suhas Olmedo MD) Vertigo (Acute) 1. Vertigo status post fall x3 -MRI and MRA of head and neck are pending, they were going to be done today however the MRI machine was broken -Continue with the meclizine for now -Valium as needed -PT/OT 2. Probable COPD -Does not appear to have had any PFTs but was told by his doctor that he might have COPD -Currently on Brio Ellipta and albuterol DVT: Lovenox Code Visit OBSV E&M: 31394 Subsequent observation care L2
[2018-09-03] VITALS (15 sets, daily range): BP systolic 99–119; BP diastolic 53–73; PULSE 52–80; RESP 14–20; TEMP 36.6–36.8; O2SAT 94–97
[2018-09-03] MEDS: Meclizine 12.5 MG Tablet PO (04:56)
[2018-09-03] MEDS: Albuterol 2.5 MG/3 ML VIAL.NEB. INHALATION ×3 (06:45→19:34)
[2018-09-03] MEDS: Budesonide Respules 0.5 MG/2 ML AMPUL.NEB. INHALATION ×2 (06:45→19:34)
[2018-09-03 06:47] LABS: Absolute Lymphocyte Count 1.23 X10^3/ul (0.83-4.51); Absolute Neutrophil Count 1.8 X10^3/uL (2.0-7.7); Eosinophils% 2.9 % (0-5); Hematocrit 39.1 % (40-54); Hemoglobin 12.7 g/dl (13.0-16.5); Lymphocyte # 1.23 X10^3/ul (4.0); Lymphocyte % 36.1 % (19-41); Mean Corp Hgb Conc 32.5 g/gl (32-36); Mean Corpuscular Hgb 30.1 pg (27.0-32.0); Mean Corpuscular Volume 92.7 fL (80-94); Mean Platelet Vol. 9.8 fl (6.2-12.0); Monocyte# 0.27 X10^3/uL; Monocyte% 7.9 % (0-10); Neutrophil # 1.81 X10^3/uL (2.7-7.7); Neutrophil % 53.1 % (47-70); Platelet Count 100 K/mm3 (150-450); RBC Distribution Width CV 13.5 % (11.6-14.6); RBC Distribution Width SD 45.6 fl (35.1-43.9); Red Blood Count 4.22 M/mm3 (4.6-6.2); White Blood Count 3.4 K/mm3 (4.4-11.0)
[2018-09-03 06:57] LABS: POSITIVE COUNT NO; POSITIVE DIFFERENTIAL NO; POSITIVE MORPHOLOGY NO
[2018-09-03 06:59] LABS: Anion Gap 8 (5-15); BUN 19 mg/dL (7-18); Calcium,Total 8.3 mg/dL (8.5-10.1); Chloride 108 mmol/L (98-107); Creatinine, Serum 0.76 mg/dL (0.70-1.30); EST Glomerular Filtration Rate 112 mL/min (>60); Est Glom Filt Rate - Afr Amer 136 mL/min (>60); Estimated Creatinine Clearance 90.88 ml/min; Glucose 115 mg/dL (74-106); Potassium 3.8 mmol/L (3.5-5.1); Sodium Level 142 mmol/L (136-145)
[2018-09-03] MEDS: Enoxaparin 40 MG/0.4 ML Syringe SC (08:37)
--- NOTE | 2018-09-03 09:19 | PN_ITS ---
Patient Problems: Active and Suspected Problems (Last Reviewed 09/02/18 @ 00:06 by Suhas Olmedo MD) Vertigo (Acute) Subjective: The patient is a 57-year-old male with a past medical history of chronic myelocytic leukemia, basal cell carcinoma of the face and suspected COPD (on inhalers routinely as an outpatient) who presented to the emergency department at [facility] on 09/01/2018 complaining of vertigo and lightheadedness. He had fallen 3 times on the day of presentation to the emergency department secondary to vertigo/lightheadedness. Vital signs of presentation to the emergency department were temp 98.1, pulse rate 80, blood pressure 106/68, respiratory rate 18 and he was 97% saturated on room air. CBC showed a low white blood cell count at 4.1 with an unremarkable differential. Platelets were low at 116,000. BUN was 21 with a creatinine of 0.97 and the BUN/creatinine ratio of 21.6. Random blood sugar was 134. A noncontrasted CT brain showed chronic involutional changes only. MRI of the brain was unremarkable. MRA of the head was unremarkable. MRA of the neck showed patent cervical arteries. He was admitted to the hospital and started on meclizine 12.5 mg p.o. 3 times daily and diazepam 5 mg every 8 hours as needed. He has been afebrile since admission. Blood pressure has improved and is currently 119/67. He is 96 to 97% saturated on room air and heart rate is within normal limits. Denies tinnitus history. States sometimes he hears better than at other times. Has never had vertigo before. - Physical Exam General: Alert, Oriented x3, Cooperative, - - flat affect, sitting in the chair in his room HEENT: PERRLA, EOMI, Normocephalic, - - No nystagmus Oral: Moist Mucosa Neck: Supple, Trachea Midline Lungs: Clear to auscultation Cardiovascular: Regular rate, Regular Rhythm, Normal S1, Normal S2, No murmurs, No Gallop Abdomen: Bowel Sounds Present, Soft, Non Tender, Non-Distended Extremities: No clubbing, No cyanosis, No edema Neurological: Cranial nerves II-XII grossly intact, Neuro grossly intact Vital Signs Temp Pulse Resp BP Pulse Ox 97.8 F 74 16 119/67 97 09/03/18 08:24 09/03/18 08:24 09/03/18 08:24 09/03/18 08:24 09/03/18 08:24 Oxygen Delivery Method Room Air Weight: 143 lb 4.807 oz Body Mass Index (BMI) 23.8 Intake and Output for Last 24 Hours 09/01/18 09/02/18 09/03/18 23:59 23:59 23:59 Intake Total 2250 / 2250 120 / 120 Output Total 2300 / 2300 400 / 400 Balance -50 / -50 -280 / -280 Laboratory Tests Past 24 Hrs 09/03/18 09/03/18 06:20 06:20 WBC 3.4 L RBC 4.22 L Hgb 12.7 L Hct 39.1 L MCV 92.7 MCH 30.1 MCHC 32.5 RDW 13.5 RDW Differential 45.6 H Plt Count 100 L MPV 9.8 Immature Gran % (Auto) 0.000 Neut % (Auto) 53.1 Lymph % (Auto) 36.1 [place] % (Auto) 7.9 Eos % (Auto) 2.9 Baso % (Auto) 0.0 Absolute Neuts (auto) 1.8 L Absolute Lymphs (auto) 1.23 Total Counted Not Reportable Sodium 142 Potassium 3.8 Chloride 108 H Carbon Dioxide 26.0 Anion Gap 8 BUN 19 H Creatinine 0.76 Estim Creat Clear Calc 90.88 Est GFR (MDRD) Af Amer 136 Est GFR (MDRD) Non-Af 112 BUN/Creatinine Ratio 25.0 H Glucose 115 H Calcium 8.3 L Medical Necessity - Tobacco Use Smoking Status: Never smoker Assessment/Plan All Active Problems (Last Reviewed 09/02/18 @ 00:06 by Suhas Olmedo MD) Vertigo (Acute) Impressions 1. Benign positional vertigo 2. CML 3. Borderline hypotension at admission-suspect secondary to dehydration. BUN/creatinine ratio is greater than 20. 4. Probable asthma versus COPD-patient is on albuterol MDI and albuterol aerosols at home and also on a Brio Ellipta. Try Valium 2.5 mg p.o. every 6 hours to see if this improves his dizziness. Orthostatic blood pressures revealed the heart rate go from 64 lying down to 78 standing which is borderline positive. Blood pressure dropped to 99/57 with sitting. Will hydrate with 2 L of normal saline and repeat orthostatics in the a.m. Appreciate PT/OT input. Possible discharge tomorrow. Code Visit Inpatient E&M: 71270 Subs Hosp L2
--- NOTE | 2018-09-03 11:38 | CASEMGMT ---
This KATELYN ROBLEDO to room with HOPE form at this time, explanation done-pt voices understanding, and signed HOPE form at this time. Pt voices no further questions/concerns/needs at this time. Original to chart and copy to pt at this time. SStkristyn ZEPEDA CM
[2018-09-03] MEDS: diazePAM 5 MG Tablet 2.5 MG PO ×2 (11:56→17:50)
--- NOTE | 2018-09-03 14:46 | CHAPLAIN ---
patient was busy at time of attempted visit
[2018-09-03] MEDS: 0.9% Normal Saline 1,000 ML 100 ML IV (18:44)
[2018-09-04] VITALS (10 sets, daily range): BP systolic 98–126; BP diastolic 60–75; PULSE 61–82; RESP 12–18; TEMP 36.4–36.9; O2SAT 94–98
[2018-09-04] MEDS: diazePAM 5 MG Tablet 2.5 MG PO ×3 (00:54→11:43)
[2018-09-04] MEDS: 0.9% Normal Saline 1,000 ML 100 ML IV (05:48)
[2018-09-04] MEDS: 0.9% NaCl Peripheral Flush Adult/Peds IV (05:49)
[2018-09-04] MEDS: Albuterol 2.5 MG/3 ML VIAL.NEB. INHALATION (06:47)
[2018-09-04] MEDS: Budesonide Respules 0.5 MG/2 ML AMPUL.NEB. INHALATION (06:47)
[2018-09-04] MEDS: Enoxaparin 40 MG/0.4 ML Syringe SC (08:08)
--- NOTE | 2018-09-04 13:18 | DCINST_ITS ---
- Discharge Diagnoses Current Active Problems: Current Active and Chronic Problems (Last Reviewed 09/02/18 @ 00:06 by Suhas Olmedo MD) Vertigo (Acute) CML (chronic myelocytic leukemia) (Chronic) You will use the following diet at home:: Other - Resume previous diet Your food should be the consistency of: Regular Your liquids should be the consistency of: Regular/Thin Discharge Activity: - - do not climb ladders, drive your car, operate any heavy machinery if you have any vertigo Return to work on:: 09/07/18 Call your doctor if you observe: Fever of 101 or Higher, Fainting spells, - - recurrent severe vertigo associated with nausea and vomiting Instructions: Inner Ear Problems: Causes of Dizziness (Vertigo), Managing Dizziness (Vertigo) with Medications, Managing Balance Problems: Vestibular Rehabilitation Therapy Additional Instructions: Do not drive while taking Valium if it makes you sleepy at all. After the next 48 hours you can start taking the Valium every 6 hours as needed for vertigo Allergies/Adverse Reactions: Allergies No Known Allergies Allergy (Verified 09/01/18 16:35) Medications to take at Discharge Albuterol Inhaler [Ventolin Hfa] 1 - 2 puff INHALATION Q4H PRN PRN 05/06/17 Albuterol Aerosols [Ventolin Aerosols] 2.5 mg INHALATION Q4H PRN #25 vial 01/04/18 Fluticasone/Vilanterol [Breo Ellipta 200-25 Mcg INH] 1 puff INHALATION DAILY 01/04/18 Diazepam [Valium] 2 mg PO Q6H #20 tablet 09/04/18 The following prescriptions were given: Diazepam [Valium] 2 mg PO Q6H #20 tablet Primary Care Physician: Bella Ribeiro MD [Primary Care Provider] - Please follow up with your Primary Care Physician in: 3-5 days Test Results: Test results from this visit will be discussed in further detail at your follow- up appointment, if applicable. Proposed Discharge Date: 09/04/18
--- NOTE | 2018-09-04 13:19 | PCM.DC.SUM ---
Discharge Date and Diagnosis - Problem List Patient Problems: Active and Suspected Problems (Last Reviewed 09/02/18 @ 00:06 by Suhas Olmedo MD) Vertigo (Acute) Date of Admission: 09/01/18 Date of Discharge: 09/04/18 - Primary Discharge Diagnosis Active and Suspected Problems (Last Reviewed 09/02/18 @ 00:06 by Suhas Olmedo MD) Vertigo (Acute) - likely BPV Orthostatic hypotension dehydration - Secondary Discharge Diagnosis Chronic Problems (Last Reviewed 09/02/18 @ 00:06 by Suhas Olmedo MD) CML (chronic myelocytic leukemia) (Chronic) Probable COPD - on inhalers as an OP Hospital Course and Treatment Imaging Results: Clinical Impression(s) from Imaging Studies Brain CT 09/01/18 17:21 IMPRESSION: Chronic involutional changes of the brain. Electronically Signed: Dany Franklin DO at 18:33 EDT Tel , Service support , Brain MRI 09/01/18 22:37 IMPRESSION: Unremarkable MRI brain. Electronically Signed: Josette Adams, at 19:07 EDT Tel , Service support , Head MRA 09/01/18 22:37 IMPRESSION: Unremarkable [place] patent proximal branches. Electronically Signed: Josette Adams, at 19:19 EDT Tel , Service support , Neck MRA 09/01/18 22:37 IMPRESSION: Patent cervical arteries. Electronically Signed: Josette Adams, at 20:21 EDT Tel , Service support , none Operations: None Procedures: None Summary of Care Provided: The patient is a 57-year-old male with a past medical history of chronic myelocytic leukemia, basal cell carcinoma of the face and suspected COPD (on inhalers routinely as an outpatient) who presented to the emergency department at [facility] on 09/01/2018 complaining of vertigo and lightheadedness. He had fallen 3 times on the day of presentation to the emergency department secondary to vertigo/lightheadedness. Vital signs at presentation to the emergency department were temp 98.1, pulse rate 80, blood pressure 106/68, respiratory rate 18 and he was 97% saturated on room air. CBC showed a low white blood cell count at 4.1 with an unremarkable differential. Platelets were low at 116,000. BUN was 21 with a creatinine of 0.97 and the BUN/creatinine ratio of 21.6. Random blood sugar was 134. A noncontrasted CT brain showed chronic involutional changes only. MRI of the brain was unremarkable. MRA of the head was unremarkable. MRA of the neck showed patent cervical arteries. He was admitted to the hospital and started on meclizine 12.5 mg p.o. 3 times daily and diazepam 5 mg every 8 hours as needed. He improved somewhat but, on 09/03/2018 the patient continued to have vertigo when transferring from the bed to the bedside chair. He complained of some nausea but had no emesis. Meclizine was discontinued and he was started on 2.5 mg of Valium every 6 hours. On 09/04/2018 he denied vertigo and stated he felt well. He had no nausea and no vomiting. He does say that his hearing sometimes seems worse than other times but he denies any tinnitus. Was seen by physical therapy and occupational therapy while in the hospital and was able to ambulate with a steady gait prior to discharge. He was discharged home on 09/04/2018 and will follow up with his primary care physician, Dr. Ribeiro, in 3-5 days. If he has recurrent Vertigo would consider referral to OP PT for vestibular rehabilitation. - Physical Exam General: Alert, Oriented x3, Cooperative, - - flat affect, sitting in the chair in his room in no apparent distress HEENT: PERRLA, EOMI, Normocephalic, - - No nystagmus Oral: Moist Mucosa Neck: Supple, Trachea Midline Lungs: Clear to auscultation Cardiovascular: Regular rate, Regular Rhythm, Normal S1, Normal S2, No murmurs, No Gallop Abdomen: Bowel Sounds Present, Soft, Non Tender, Non-Distended Extremities: No clubbing, No cyanosis, No edema Neurological: Cranial nerves II-XII grossly intact, Neuro grossly intact This note was generated with [email or web address] dictation software. It may contain incorrect words, spelling, and punctuation that were not noted in checking the note before signing. Patient Problems: Active and Suspected Problems (Last Reviewed 09/02/18 @ 00:06 by Suhas Olmedo MD) Vertigo (Acute) - Physical Exam Vital Signs Temp Pulse Resp BP Pulse Ox 97.5 F L 82 18 122/75 H 97 09/04/18 08:03 09/04/18 11:21 09/04/18 08:03 09/04/18 08:03 09/04/18 08:03 Oxygen Delivery Method Room Air Weight: 143 lb 4.807 oz Body Mass Index (BMI) 23.8 Orthostatic Vital Signs Start: 09/03/18 09:45 Freq: q24h Status: Active Protocol: Activity Type Activity Date Activity User E-Sign Co-Sign Detail Recorded Client Recorded Date Recorded By Document 09/04/18 08:01 [id number] 09/04/18 08:03 JL 09/04/18 08:01 Orthostatic Vitals Standing -Blood Pressure (90/60-120/80 mm Hg) 122/75 H -Extremity Use Right Arm -Pulse Rate (60-100 beats/min) 79 Sitting -Blood Pressure (90/60-120/80 mm Hg) 121/70 H -Extremity Use Right Arm -Pulse Rate (60-100 beats/min) 66 Lying -Blood Pressure (90/60-120/80 mm Hg) 118/68 -Extremity Use Right Arm -Pulse Rate (60-100 beats/min) 67 Intake and Output for Last 24 Hours 09/02/18 09/03/18 09/04/18 23:59 23:59 23:59 Intake Total 2250 / 2250 1903 / 1903 620 / 620 Output Total 2300 / 2300 2450 / 2450 2460 / 2460 Balance -50 / -50 -547 / -547 -1840 / -1840 Discharge Activity: - - do not climb ladders, drive your car, operate any heavy machinery if you have any vertigo Return to work on:: 09/07/18 Call your doctor if you observe: Fever of 101 or Higher, Fainting spells, - - recurrent severe vertigo associated with nausea and vomiting Home Medications: Medications to take at Discharge Albuterol Inhaler [Ventolin Hfa] 1 - 2 puff INHALATION Q4H PRN PRN 05/06/17 Albuterol Aerosols [Ventolin Aerosols] 2.5 mg INHALATION Q4H PRN #25 vial 01/04/18 Fluticasone/Vilanterol [Breo Ellipta 200-25 Mcg INH] 1 puff INHALATION DAILY 01/04/18 Diazepam [Valium] 2 mg PO Q6H #20 tablet 09/04/18 Following Prescrptions Were Given to Patient: Diazepam [Valium] 2 mg PO Q6H #20 tablet Primary Care Physician: Bella Ribeiro MD [Primary Care Provider] - Please follow up with your Primary Care Physician in: 3-5 days Patient Instructions: Inner Ear Problems: Causes of Dizziness (Vertigo), Managing Dizziness (Vertigo) with Medications, Managing Balance Problems: Vestibular Rehabilitation Therapy Disposition: Home Minutes spent on discharge:: 30 Patient Condition:: Good Medical Necessity - Tobacco Use Smoking Status: Never smoker Tobacco Use: Non-smoker Meaningful Use Info Meaningful Use Diagnoses (Choose all that apply): None applicable Code Visit Inpatient E&M: 19654 Disch Hosp
--- NOTE | 2018-09-04 13:22 | DS.PCM_ITS ---
Discharge Date and Diagnosis - Problem List Patient Problems: Active and Suspected Problems (Last Reviewed 09/02/18 @ 00:06 by Suhas Olmedo MD) Vertigo (Acute) Date of Admission: 09/01/18 Date of Discharge: 09/04/18 - Primary Discharge Diagnosis Active and Suspected Problems (Last Reviewed 09/02/18 @ 00:06 by Suhas Olmedo MD) Vertigo (Acute) - likely BPV Orthostatic hypotension dehydration - Secondary Discharge Diagnosis Chronic Problems (Last Reviewed 09/02/18 @ 00:06 by Suhas Olmedo MD) CML (chronic myelocytic leukemia) (Chronic) Probable COPD - on inhalers as an OP Hospital Course and Treatment Imaging Results: Clinical Impression(s) from Imaging Studies Brain CT 09/01/18 17:21 IMPRESSION: Chronic involutional changes of the brain. Electronically Signed: Dany Franklin DO at 18:33 EDT Tel , Service support , Brain MRI 09/01/18 22:37 IMPRESSION: Unremarkable MRI brain. Electronically Signed: Josette Adams, at 19:07 EDT Tel , Service support , Head MRA 09/01/18 22:37 IMPRESSION: Unremarkable [place] patent proximal branches. Electronically Signed: Josette Adams, at 19:19 EDT Tel , Service support , Neck MRA 09/01/18 22:37 IMPRESSION: Patent cervical arteries. Electronically Signed: Josette Adams, at 20:21 EDT Tel , Service support , none Operations: None Procedures: None Summary of Care Provided: The patient is a 57-year-old male with a past medical history of chronic myelocytic leukemia, basal cell carcinoma of the face and suspected COPD (on inhalers routinely as an outpatient) who presented to the emergency department at [facility] on 09/01/2018 complaining of vertigo and lightheadedness. He had fallen 3 times on the day of presentation to the emergency department secondary to vertigo/lightheadedness. Vital signs at presentation to the emergency department were temp 98.1, pulse rate 80, blood pressure 106/68, respiratory rate 18 and he was 97% saturated on room air. CBC showed a low white blood cell count at 4.1 with an unremarkable differential. Platelets were low at 116,000. BUN was 21 with a creatinine of 0.97 and the BUN/creatinine ratio of 21.6. Random blood sugar was 134. A noncontrasted CT brain showed chronic involutional changes only. MRI of the brain was unremarkable. MRA of the head was unremarkable. MRA of the neck showed patent cervical arteries. He was admitted to the hospital and started on meclizine 12.5 mg p.o. 3 times daily and diazepam 5 mg every 8 hours as needed. He improved somewhat but, on 09/03/2018 the patient continued to have vertigo when transferring from the bed to the bedside chair. He complained of some nausea but had no emesis. Meclizine was discontinued and he was started on 2.5 mg of Valium every 6 hours. On 09/04/2018 he denied vertigo and stated he felt well. He had no nausea and no vomiting. He does say that his hearing sometimes seems worse than other times but he denies any tinnitus. Was seen by physical therapy and occupational therapy while in the hospital and was able to ambulate with a steady gait prior to discharge. He was discharged home on 09/04/2018 and will follow up with his primary care physician, Dr. Ribeiro, in 3-5 days. If he has recurrent Vertigo would consider referral to OP PT for vestibular rehabilitation. - Physical Exam General: Alert, Oriented x3, Cooperative, - - flat affect, sitting in the chair in his room in no apparent distress HEENT: PERRLA, EOMI, Normocephalic, - - No nystagmus Oral: Moist Mucosa Neck: Supple, Trachea Midline Lungs: Clear to auscultation Cardiovascular: Regular rate, Regular Rhythm, Normal S1, Normal S2, No murmurs, No Gallop Abdomen: Bowel Sounds Present, Soft, Non Tender, Non-Distended Extremities: No clubbing, No cyanosis, No edema Neurological: Cranial nerves II-XII grossly intact, Neuro grossly intact This note was generated with [email or web address] dictation software. It may contain incorrect words, spelling, and punctuation that were not noted in checking the note before signing. Patient Problems: Active and Suspected Problems (Last Reviewed 09/02/18 @ 00:06 by Suhas Olmedo MD) Vertigo (Acute) - Physical Exam Vital Signs Temp Pulse Resp BP Pulse Ox 97.5 F L 82 18 122/75 H 97 09/04/18 08:03 09/04/18 11:21 09/04/18 08:03 09/04/18 08:03 09/04/18 08:03 Oxygen Delivery Method Room Air Weight: 143 lb 4.807 oz Body Mass Index (BMI) 23.8 Orthostatic Vital Signs Start: 09/03/18 09:45 Freq: q24h Status: Active Protocol: Activity Type Activity Date Activity User E-Sign Co-Sign Detail Recorded Client Recorded Date Recorded By Document 09/04/18 08:01 [id number] 09/04/18 08:03 JL 09/04/18 08:01 Orthostatic Vitals Standing -Blood Pressure (90/60-120/80 mm Hg) 122/75 H -Extremity Use Right Arm -Pulse Rate (60-100 beats/min) 79 Sitting -Blood Pressure (90/60-120/80 mm Hg) 121/70 H -Extremity Use Right Arm -Pulse Rate (60-100 beats/min) 66 Lying -Blood Pressure (90/60-120/80 mm Hg) 118/68 -Extremity Use Right Arm -Pulse Rate (60-100 beats/min) 67 Intake and Output for Last 24 Hours 09/02/18 09/03/18 09/04/18 23:59 23:59 23:59 Intake Total 2250 / 2250 1903 / 1903 620 / 620 Output Total 2300 / 2300 2450 / 2450 2460 / 2460 Balance -50 / -50 -547 / -547 -1840 / -1840 Discharge Activity: - - do not climb ladders, drive your car, operate any heavy machinery if you have any vertigo Return to work on:: 09/07/18 Call your doctor if you observe: Fever of 101 or Higher, Fainting spells, - - recurrent severe vertigo associated with nausea and vomiting Home Medications: Medications to take at Discharge Albuterol Inhaler [Ventolin Hfa] 1 - 2 puff INHALATION Q4H PRN PRN 05/06/17 Albuterol Aerosols [Ventolin Aerosols] 2.5 mg INHALATION Q4H PRN #25 vial 01/04/18 Fluticasone/Vilanterol [Breo Ellipta 200-25 Mcg INH] 1 puff INHALATION DAILY 01/04/18 Diazepam [Valium] 2 mg PO Q6H #20 tablet 09/04/18 Following Prescrptions Were Given to Patient: Diazepam [Valium] 2 mg PO Q6H #20 tablet Primary Care Physician: Bella Ribeiro MD [Primary Care Provider] - Please follow up with your Primary Care Physician in: 3-5 days Patient Instructions: Inner Ear Problems: Causes of Dizziness (Vertigo), Man aging Dizziness (Vertigo) with Medications, Managing Balance Problems: Vestibular Rehabilitation Therapy Disposition: Home Minutes spent on discharge:: 30 Patient Condition:: Good Medical Necessity - Tobacco Use Smoking Status: Never smoker Tobacco Use: Non-smoker Meaningful Use Info Meaningful Use Diagnoses (Choose all that apply): None applicable Code Visit Inpatient E&M: 90046 Disch Hosp
--- NOTE | 2018-09-04 14:53 | CHAPLAIN ---
Type of Pastoral Visit _x__ Initial Visit ___ Follow-up Visit ___ On-call Visit ___ General Patient Visit ___ Spiritual Assessment ___ Family Conference ___ Bereavement ___ Rapid Response ___ Code Blue ___ Other (describe below) Pastoral Care Referral From _x__ Patient ___ Family ___ Nurse ___ Physician ___ Log Truck Driver ___ Senior Power Scheduler ___ Other (describe below) Sacrament/Intervention _x__ Active listening ___ Anointing ___ Latter-Day ___ Bereavement ___ Communion _x__ Meri exploration ___ ___ Life review _x__ Prayer ___ Reconciliation ___ Sacrament of Sick ___ Supportive presence ___ Wedding ___ Other (describe below) Pastoral Comments
== END 2018-09-04 17:10 | disposition home or self-care (01) ==
LOC: ED 17:50 → PCU 21:35
PROVIDERS: Family Medicine; Admitting Provider Hospitalist; Emergency Provider Emergency Medicine; Family Provider Internal Medicine; PCP Internal Medicine; Visit Provider Internal Medicine
DX: R42 Dizziness and giddiness (principal); I95.1 Orthostatic hypotension; E86.0 Dehydration; C92.10 Chronic myeloid leukemia, BCR/ABL-positive, not having achieved remission; Z91.81 History of falling; Z79.51 Long term (current) use of inhaled steroids; Z85.828 Personal history of other malignant neoplasm of skin; R11.0 Nausea; I49.1 Atrial premature depolarization; R29.700 NIHSS score 0
CPT/HCPCS: 36415; 70450; 70544; 70549; 70551; 80048; 80061; 84484; 85025; 93005; 94640; 96360; 96361; 96372; 97110; 97163; 97165; 97530; 97802; 99218; 99285; A9575; J7030; J7040; A4216; G0378

== ENCOUNTER 2019-05-03 22:12 | Emergency (ER) | payer MEDICARE, SELFPAY ==
[2018-09-01 22:53] VITALS: BMI 23.8
[2019-05-03 22:13] VITALS: BP 112/71; PULSE 78; RESP 18; TEMP 37.2; O2SAT 95; BMI 24.1
--- NOTE | 2019-05-03 22:33 | ED.VIS.INJ ---
History of Present Illness Chief Complaint: Laceration Detail of Chief Complaint: Laceration scrotum left side Informant: Patient Onset: Yesterday Mechanism/Context: Incised Quality of Pain: - - No pain Location: Left side of scrotum near the penis Current Severity: Gone Maximum Severity: Mild Worsened by: Razor cut Relieved by: Nothing Associated Symptoms: Negative for: Parasthesias, Weakness, Loss of function Narrative: Is a middle-age male who sustained laceration to his scrotum while shaving his pubic hair. He presents for evaluation. He has had no bleeding today. He was unaware that he has been area warts. He states she is sexually active the same person for the past year. He denies history of diabetes. Tetanus Immunization: Unknown Prior similar symptoms: No Recent Illness/Hospitalization: No - Past Medical History (1) Vertigo Status: Acute (2) CML (chronic myelocytic leukemia) Status: Chronic Past Medical History - Allergies and Home Meds Allergies/Adverse Reactions: Allergies No Known Allergies Allergy (Verified 05/03/19 22:15) Primary Care Physician: Bella Ribeiro MD [Primary Care Provider] - Prior records reviewed: Yes Surgical History: - - Facial surgery to remove basal cell carcinoma. Nasal reconstruction Lives: Spouse/ Significant Other Smoking Status: Never smoker Drugs: None - Family History Maternal Family History: Reports: Dementia Paternal Family History: Reports: Cancer - His father Lung cancer that metastasized to his brain. His father was a smoker. Review of Systems General: Denies: Chills, Fever Eyes: Denies: Visual changes - bilaterally, Blurred Vision - bilaterally ENT: Denies: Bilateral ear pain, Rhinorrhea, Sore throat Cardiovascular: Denies: Chest pain, Palpitations Genitourinary: Denies: Dysuria, Hematuria, Frequency Musculoskeletal: Denies: Myalgias, Arthralgias, Neck pain, Back pain, Swelling, Extremity Pain Skin: Reports: Wounds. Denies: Rash Hematologic: Denies: Easy bruising, Easy bleeding Physical Exam Vital Signs/Narrative: Vital Signs Temp Pulse Resp BP Pulse Ox 05/03/19 22:13 98.9 F 78 18 112/71 95 Inital Vital Signs reviewed: Yes General: Well nourished, Well developed Head: Normocephalic, Atraumatic Eyes: Perrl, EOMI. Negative for: Pale conjunctiva, Scleral icterus Neck: Nontender, Full ROM Cardiovascular: Regular rate, Regular rhythm, No murmurs Respiratory: No distress Abdomen: - - Patient is circumcised. There is no laceration penis. There is a small bonnie which has healed left side of scrotum. Patient has venereal warts. He was unaware that he had venereal warts. Skin: Normal color, Rash Neurological: Alert, Oriented x3, Cranial nerves II-XII grossly intact, Normal Strength, Normal Sensation - Glascow Coma Scale Eye Opening: Spontaneous Motor: Obeys Commands Verbal: Oriented Coma Scale Total: 15 Diagnostic/Tx/Re-eval - Medical Decision Making Patient has a superficial laceration which is healed. There is no active bleeding. There is evidence of venereal warts. ED Disposition - Plan for ED Patient: Disposition: Home or Assisted Living Diagnosis: Venereal warts in male, superficial laceration scrotum Instructions: LACERATION, Small/superficial, Not sutured, Genital Warts (Condyloma) Referrals: Bella Ribeiro MD [Primary Care Provider] - Brian Pedroza MD [STAFF PHYSICIAN] - 1 Week
== END 2019-05-03 22:42 | disposition home or self-care (01) ==
PROVIDERS: Emergency Provider Emergency Medicine; PCP Internal Medicine
DX: S31.31XA Laceration without foreign body of scrotum and testes, initial encounter (principal); W26.8XXA Contact with other sharp object(s), not elsewhere classified, initial encounter; Y93.89 Activity, other specified; A63.0 Anogenital (venereal) warts
CPT/HCPCS: 99282

== ENCOUNTER 2019-09-11 17:24 | Emergency (ER) | payer MEDICARE, SELFPAY ==
[2019-09-11 17:25] VITALS: BP 119/71; PULSE 72; RESP 18; TEMP 36.8; O2SAT 97; BMI 25.1
--- NOTE | 2019-09-11 17:45 | CT_ITS ---
STUDY: CT BRAIN WITHOUT CONTRAST REASON FOR EXAM: Male, 58 years old. HEADACHE, HX OF LEUKEMIA RADIATION DOSAGE (If Supplied By Facility): CTDIvol = ( 44.99 ) mGy, DLP = ( 829.85 ) mGycm TECHNIQUE: Transaxial CT imaging of the brain was performed without administration of intravenous contrast material. Individualized dose optimization techniques were used for this CT. COMPARISON: Prior head CT exam of September 01, 2018 FINDINGS: Normal soft tissue structures. Normal calvarium. Normal size ventricles and extra-axial spaces for the patient''s age. There are areas of decreased attenuation within the white matter tracts of the supratentorial brain, consistent with microvascular disease changes. Normal basal ganglia and thalami. Normal brainstem. Normal cerebellum. There is no intracranial hemorrhage. There are no findings of an acute ischemic infarction. Mild areas of mucosal thickening at the base of the right maxillary sinus and near the ostia of the maxillary sinuses. The is probably status post a bilateral middle meatotomy and turbinectomy on the right. 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 Mucosal thickening in most left maxillary sinuses and in the inferior recesses of the frontal sinuses. CT/Brain/Head without Contrast IMPRESSION: No acute intracranial findings. Negative for hemorrhage, hematoma or demarcation of a new nonhemorrhagic infarct zone. Minimal involutional changes. Incidental sinus findings as stated above. Electronically Signed: Vicki Bean MD at 18:29 EDT , Service support ,
--- NOTE | 2019-09-11 17:47 | ED.DCSUM_ITS ---
History of Present Illness Chief Complaint: Headache Narrative: This patient is a 58-year-old male who presents with multiple complaints. He states that he had white powdery stuff on imaging of his chest about 6 months ago. He was seeing pulmonology. They were uncertain of the cause. He has not followed up since that time. He complains of 4 days of burning right-sided chest pain. He also complains of about the same duration of lower back pain and right knee pain. He also complains of 3 to 4 days of left-sided headache. Headache was gradual in onset over about 2 and half days. He describes it as stabbing. It is behind the left eye and along left side of the head. No vomiting. No head trauma or injury. He currently takes no medications although he does have a history of leukemia and a skin cancer. Past Medical History - Allergies and Home Meds Allergies/Adverse Reactions: Allergies No Known Allergies Allergy (Verified 09/11/19 17:28) Primary Care Physician: Bella Ribeiro MD [Primary Care Provider] - Past Medical History: - - Leukemia, skin cancer Surgical History: - - Facial surgery to remove basal cell carcinoma. Nasal re construction Smoking Status: Never smoker - Family History Maternal Family History: Reports: Dementia Paternal Family History: Reports: Cancer - His father Lung cancer that metastasized to his brain. His father was a smoker. Review of Systems All systems negative except as indicated General: Denies: Fever Eyes: Denies: Visual changes - bilaterally ENT: Denies: Bilateral ear pain Cardiovascular: Reports: Chest pain Respiratory: Reports: Cough - Chronic cough. Denies: Dyspnea Gastrointestinal: Denies: Abdominal pain, Nausea, Vomiting, Diarrhea Musculoskeletal: Reports: Back pain, Extremity Pain Skin: Denies: Rash Neurological: Reports: Headache Allergy: Denies: Uticaria Physical Exam Vital Signs/Narrative: Vital Signs Temp Pulse Resp BP Pulse Ox 09/11/19 17:25 98.2 F 72 18 119/71 97 Inital Vital Signs reviewed: Yes General: Well nourished Head: Normocephalic Eyes: EOMI ENT: Moist mucous membranes Neck: Supple Cardiovascular: Regular rate, Regular rhythm Respiratory: No distress, CTA bilaterally Abdomen: Soft Back: - - Paraspinal lumbar tenderness no midline tenderness Extremities: - - Tenderness of the right knee no focal bony tenderness no effusion no erythema not hot to the touch active full range of motion Skin: Normal color Neurological: Alert, Normal Strength, Normal Sensation, - - GCS 15, no focal or lateralizing neurological deficits, no temporal artery tenderness Psychological: Normal affect Diagnostic/Tx/Re-eval Impressions Brain CT 09/11/19 17:45 IMPRESSION: No acute intracranial findings. Negative for hemorrhage, hematoma or demarcation of a new nonhemorrhagic infarct zone. Minimal involutional changes. Incidental sinus findings as stated above. Electronically Signed: Vicki Bean MD at 18:29 EDT , Service support , Chest X-Ray 09/11/19 18:20 IMPRESSION: No acute cardiopulmonary findings or changes. Negative for new consolidation, focal atelectasis or a substantial pleural effusion. Stable bibasilar chronic changes. Electronically Signed: Vicki Bean MD at 19:05 EDT , Service support , Knee X-Ray 09/11/19 18:20 IMPRESSION: Normal x-ray examination of the knee. Electronically Signed: Vicki Bean MD at 19:03 EDT , Service support , Lumbar Spine X-Ray 09/11/19 18:20 IMPRESSION: Exaggerated lumbar lordosis with a mild dextroscoliosis. Slight degenerative retrolisthesis of L2. Negative for fracture, osteolytic or blastic bone lesion. Mild and minimal degenerative disc and joint changes as described above. No substantial changes from prior abdomen and pelvic CT exam of April 04, 2018 Electronically Signed: Vicki Bean MD at 19:09 EDT , Service support , 09/11/19 17:45 Brain/Head without Contrast [CT] Stat 09/11/19 18:20 CXR [Chest PA and Lateral] [RAD] Stat Knee 4 or More Views [RAD] Stat Lumbar Spine 2 or 3 Views [RAD] Stat - Medical Decision Making Imaging unremarkable as above. Patient was given intramuscular Toradol here. He is resting comfortably on reevaluation. I wrote him a prescription for naproxen for symptomatic relief and advised that he follow-up with his primary care physician but he does understand to return for new or worsening symptoms. ED Disposition - Plan for ED Patient: Disposition: Home or Assisted Living Diagnosis: Headache, Low back pain, Right knee pain, Chest pain Instructions: ED Chest Pain NonCardiac, ED Back Pain Acute or Chronic, ED Knee Pain UKO Prescriptions: Naproxen [Naprosyn] 500 mg PO BID #20 tab Prescription Printed Referrals: Bella Ribeiro MD [Primary Care Provider] -
--- NOTE | 2019-09-11 18:20 | RAD_ITS ---
STUDY: X-RAY - RIGHT KNEE REASON FOR EXAM: Male, 58 years old. KNEE PAIN TECHNIQUE: 4 view(s) of the knee. COMPARISON: None. FINDINGS: Normal visualized distal femur. Normal visualized proximal tibia and fibula. Normal proximal tibiofibular articulation. There is no demonstrated fracture. Normal medial femorotibial compartment. Normal lateral femorotibial compartment. Normal patellofemoral articulation. The soft tissue structures are unremarkable. RAD/Knee 4 or More Views IMPRESSION: Normal x-ray examination of the knee. Electronically Signed: Vicki Bean MD at 19:03 EDT , Service support ,
--- NOTE | 2019-09-11 18:20 | RAD_ITS ---
STUDY: X-RAY CHEST REASON FOR EXAM: Male, 58 years old. CHEST PAIN TECHNIQUE: 2 views COMPARISON: Prior chest radiograph of May 29, 2018 and January 17, 2018 and January 04, 2018. FINDINGS: Limited overall inspiration with stable bibasilar chronic changes without new consolidation or a substantial pleural effusion. There is no demonstrated pleural abnormality. Normal size heart. Normal mediastinum and logan. Normal visualized pulmonary arteries. Normal visualized aortic arch and descending thoracic aorta. Normal visualized thoracic spine. Normal visualized ribs, clavicles, and shoulders. There is no demonstrated abnormality of the visualized soft tissue structures of the upper abdomen. RAD/Chest PA and Lateral IMPRESSION: No acute cardiopulmonary findings or changes. Negative for new consolidation, focal atelectasis or a substantial pleural effusion. Stable bibasilar chronic changes. Electronically Signed: Vicki Bean MD at 19:05 EDT , Service support ,
--- NOTE | 2019-09-11 18:20 | RAD_ITS ---
STUDY: X-RAY - LUMBAR SPINE REASON FOR EXAM: Male, 58 years old. BACK PAIN TECHNIQUE: 3 view(s) of the lumbar spine were obtained. COMPARISON: Prior abdomen and pelvic CT exam of April 04, 2018 FINDINGS: There is an exaggerated lumbar lordosis. Mild dextroscoliosis. Slight retrolisthesis of L2. Normal vertebral bodies and endplates. Mild degenerative disc narrowing and mild spondylitic endplate changes at L1-2, L2-3 and L3-4. Minimal disc changes at L4-5 and L5-S1. Mild hypertrophic facet arthrosis at L4-5 and L5-S1. The soft tissue structures are unremarkable. RAD/Lumbar Spine 2 or 3 Views IMPRESSION: Exaggerated lumbar lordosis with a mild dextroscoliosis. Slight degenerative retrolisthesis of L2. Negative for fracture, osteolytic or blastic bone lesion. Mild and minimal degenerative disc and joint changes as described above. No substantial changes from prior abdomen and pelvic CT exam of April 04, 2018 Electronically Signed: Vicki Bean MD at 19:09 EDT , Service support ,
[2019-09-11] MEDS: Ketorolac 60 MG/2 ML Vial IM (19:02)
[2019-09-11 19:58] VITALS: BP 96/61; PULSE 57; RESP 16; RESP 17; O2SAT 98
== END 2019-09-11 20:00 | disposition home or self-care (01) ==
LOC: ED 19:44
PROVIDERS: Emergency Provider Emergency Medicine; PCP Internal Medicine
DX: R51 Headache (principal); M54.5 Low back pain; M25.561 Pain in right knee; R07.9 Chest pain, unspecified; Z85.6 Personal history of leukemia; Z85.828 Personal history of other malignant neoplasm of skin
CPT/HCPCS: 70450; 71046; 72100; 73564; 96372; 99282

== ENCOUNTER 2020-01-26 17:29 | Emergency (ER) | payer MEDICARE, SELFPAY ==
[2019-09-21 09:47] VITALS: BMI 25.1
[2020-01-26 17:30] VITALS: BP 121/77; PULSE 65; RESP 16; TEMP 36.1; O2SAT 99; BMI 23.3
--- NOTE | 2020-01-26 17:39 | ED.DCSUM_ITS ---
History of Present Illness Chief Complaint: Upper Extremity Injury Informant: Patient Narrative: The 59-year-old male presenting with left thumb pain after he tripped and fell forward he tried to brace himself with his hand and injured his thumb against the wall. He is states that his friend heard a pop but he did not hear this himself. He is able to move the thumb but he states it hurts from the middle of his thumb distally. He does not have any loss of sensation. There is no obvious deformity. No lacerations or abrasions. - Past Medical History (1) CML (chronic myelocytic leukemia) Status: Chronic Past Medical History - Allergies and Home Meds Allergies/Adverse Reactions: Allergies No Known Allergies Allergy (Verified 09/21/19 09:45) Primary Care Physician: Bella Ribeiro MD [Primary Care Provider] - Nithin Diaz MD [STAFF PHYSICIAN] - Past Medical History: - - Reviewed in problem list Surgical History: noncontributory, - - Facial surgery to remove basal cell carcinoma. Nasal reconstruction Lives: Alone Smoking Status: Never smoker Alcohol: None Drugs: None - Family History Maternal Family History: Family History (Last Updated 09/21/19 @ 09:47 by Regi Bryan) Other CVA (cerebral vascular accident) Cancer Family History: Reports: Dementia Paternal Family History: Family History (Last Updated 09/21/19 @ 09:47 by Regi Bryan) Other CVA (cerebral vascular accident) Cancer Family History: Reports: Cancer - His father Lung cancer that metastasized to his brain. His father was a smoker. Review of Systems General: Denies: Chills, Fever, Sweats Eyes: Denies: Visual changes - bilaterally, Diplopia ENT: Denies: Rhinorrhea, Sore throat Cardiovascular: Denies: Chest pain, Palpitations Respiratory: Denies: Dyspnea, Cough, Dyspnea on exertion Gastrointestinal: Denies: Abdominal pain, Nausea, Vomiting, Diarrhea, Melena, Hematochezia Genitourinary: Denies: Dysuria, Hematuria, Frequency Musculoskeletal: Reports: Extremity Pain - Left thumb pain. Denies: Back pain Skin: Denies: Abrasions, Wounds Neurological: Denies: Headache, Weakness, Parasthesia, Numbness Physical Exam Vital Signs/Narrative: Vital Signs Temp Pulse Resp BP Pulse Ox 01/26/20 17:30 97 F L 65 16 121/77 H 99 General: Well nourished, Well developed, No Acute Distress Head: Normocephalic, Atraumatic Eyes: Perrl, EOMI ENT: Moist mucous membranes, No rhinorrhea Cardiovascular: Regular rate, Regular rhythm, No murmurs Respiratory: No distress, CTA bilaterally, Chest nontender Extremities: - - Tenderness to palpation over the left thumb at the mid thumb distally. There is no ecchymosis or swelling. Patient is able to ask and extend the thumb with pain elicited. There is no pain at the base of his left thumb. Skin: Normal color, No rash Neurological: Alert, Oriented x3 Psychological: Normal affect, Normal Mood Diagnostic/Tx/Re-eval Clinical Impression(s) from Imaging Studies Hand X-Ray 01/26/20 17:40 IMPRESSION: First distal phalanx fracture, nondisplaced, with soft tissue swelling. Electronically Signed: Maximus Conrad MD ([place]) at 17:51 EDT , Service support , - Medical Decision Making Patient presents with left thumb pain after mechanical fall. His x-ray shows that he has a nondisplaced distal phalanx fracture of the left thumb. Patient placed in a splint for comfort. He will be given follow-up with orthopedics. He was given prescription for [place] for pain. Impression: 1. Left distal phalanx fracture ED Disposition - Plan for ED Patient: Disposition: Home or Assisted Living Instructions: ED FINGER FRACTURE Closed Prescriptions: Hydrocodone Bitart/Apap 5-325 [[place] 5MG-325MG] 1 tab PO Q6H PRN PRN 3 Days #12 tab PRN Reason: Pain Prescription Printed Referrals: Bella Ribeiro MD [Primary Care Provider] - Nithin Diaz MD [STAFF PHYSICIAN] -
--- NOTE | 2020-01-26 17:40 | RAD_ITS ---
STUDY: X-RAY - LEFT HAND REASON FOR EXAM: Male, 59 years old. fall, thumb pain TECHNIQUE: 3 view(s) of the hand. COMPARISON: None. FINDINGS: Normal radiocarpal articulation. Normal distal radioulnar joint. Normal visualized carpal bones. Normal carpal articulations Normal carpometacarpal articulation of the thumb. Normal second through fifth carpometacarpal joints. Normal metacarpi. Normal metacarpophalangeal joint of the thumb. Normal interphalangeal joint of the thumb. There is a transverse fracture of the first distal phalanx. Normal metacarpophalangeal joints of the second through fifth fingers. Normal proximal and distal interphalangeal joints of the second through fifth fingers. Normal phalanges of the second through fifth fingers. Soft tissue swelling of the first digit. RAD/Hand Min 3 Views IMPRESSION: First distal phalanx fracture, nondisplaced, with soft tissue swelling. Electronically Signed: Maximus Conrad MD ([place]) at 17:51 EDT , Service support ,
[2020-01-26] MEDS: Ibuprofen 600 MG Tablet PO (18:24)
[2020-01-26 18:55] VITALS: RESP 16
== END 2020-01-26 18:56 | disposition home or self-care (01) ==
PROVIDERS: Emergency Provider Student in an Organized Health Care Education/Training Program; PCP Internal Medicine
DX: S62.525A Nondisplaced fracture of distal phalanx of left thumb, initial encounter for closed fracture (principal); W01.0XXA Fall on same level from slipping, tripping and stumbling without subsequent striking against object, initial encounter; Y93.9 Activity, unspecified; Y92.9 Unspecified place or not applicable; Y99.9 Unspecified external cause status
CPT/HCPCS: 73130; 99282

== ENCOUNTER 2020-04-01 18:54 | Emergency (ER) | payer MEDICARE, SELFPAY ==
[2020-04-01 18:55] VITALS: BP 103/60; PULSE 69; PULSE 71; RESP 16; TEMP 36.7; O2SAT 100; O2SAT 99; BMI 23.3
--- NOTE | 2020-04-01 19:10 | ED.DCSUM_ITS ---
History of Present Illness Chief Complaint: Back Informant: Patient Narrative: 59-year-old male who presents to the emergency department with acute low back pain with radiation to the right leg. Patient tells me he has a history of sciatica with flareups once or twice a year. This particular pain developed about 3 days ago while he was at work. He thought maybe he lifted a box that started but it slowly got worse throughout the day. Now he notes radiation to the right leg down to the level of the knee. He states that he has not had any change in bowel or bladder function, he is no longer on steroids, no IV drug use, no rashes, no other red flags. He tells me he has never addressed his sciatica with his primary care doctor. - Past Medical History (1) Vertigo Status: Chronic (2) CML (chronic myelocytic leukemia) Status: Chronic Past Medical History - Allergies and Home Meds Allergies/Adverse Reactions: Allergies No Known Allergies Allergy (Verified 09/21/19 09:45) Primary Care Physician: Bella Ribeiro MD [Primary Care Provider] - 1 Week Prior records reviewed: Yes Past Medical History: - - L Surgical History: noncontributory, - - Facial surgery to remove basal cell carcinoma. Nasal reconstruction Smoking Status: Never smoker Alcohol: None Drugs: None - Family History Maternal Family History: Family History (Last Updated 09/21/19 @ 09:47 by Regi Bryan) Other CVA (cerebral vascular accident) Cancer Family History: Reports: Dementia Paternal Family History: Family History (Last Updated 09/21/19 @ 09:47 by Regi Bryan) Other CVA (cerebral vascular accident) Cancer Family History: Reports: Cancer - His father Lung cancer that metastasized to his brain. His father was a smoker. Review of Systems General: Denies: Chills, Fever, Sweats Eyes: Denies: Visual changes - bilaterally, Diplopia ENT: Denies: Rhinorrhea, Sore throat Cardiovascular: Denies: Chest pain, Palpitations Respiratory: Denies: Dyspnea, Cough, Dyspnea on exertion Gastrointestinal: Denies: Abdominal pain, Nausea, Vomiting, Diarrhea, Melena, Hematochezia Genitourinary: Denies: Dysuria, Hematuria, Frequency Musculoskeletal: Reports: Back pain. Denies: Extremity Pain Skin: Denies: Rash, Wounds Neurological: Reports: Parasthesia. Denies: Headache, Weakness, Numbness Physical Exam Vital Signs/Narrative: Vital Signs Temp Pulse Resp BP Pulse Ox 04/01/20 18:55 98.0 F 69 16 103/60 100 Inital Vital Signs reviewed: Yes General: Well nourished, Well developed, No Acute Distress Head: Normocephalic, Atraumatic Eyes: Perrl, EOMI ENT: Moist mucous membranes, No rhinorrhea Neck: Supple, Nontender Cardiovascular: Regular rate, Regular rhythm, No murmurs Respiratory: No distress, CTA bilaterally, Chest nontender Abdomen: Soft, Nontender, Nondistended, Normal bowel sounds Back: - - Diffuse tenderness to palpation. Tissue texture changes consistent with muscular spasm. No skin changes to suggest abscess. Painful range of mo tion Extremities: Nontender, No edema, - - Right knee patella tracks normally. No effusion. Skin: Normal color, No rash Neurological: Alert, Oriented x3, Cranial nerves II-XII grossly intact, Normal Strength, Normal Sensation, Normal DTR - (Patellar and Achilles) Psychological: Normal affect, Normal Mood Diagnostic/Tx/Re-eval - Medical Decision Making This appears to be a case of sciatica. I will write for some pain medication and muscle relaxants. Patient was advised that if he has these flares once or twice a year he probably should talk to his primary care physician about them and probably undergo physical therapy for evaluation of techniques to help limit the flares. ED Disposition - Plan for ED Patient: Disposition: Home or Assisted Living Diagnosis: Sciatica Instructions: ED Sciatica Prescriptions: Ibuprofen [Motrin] 800 mg PO TID PRN PRN #20 tab PRN Reason: Pain Prescription Printed Oxycodone HCl/Acetaminophen [Percocet 5/325] 1 tab PO Q6H PRN PRN 3 Days #12 tab PRN Reason: Pain Prescription Printed Diazepam [Valium] 5 mg PO Q8 PRN #15 tab PRN Reason: Muscle Spasm Prescription Printed Referrals: Bella Ribeiro MD [Primary Care Provider] - 1 Week
[2020-04-01] MEDS: Ketorolac 60 MG/2 ML Vial IM (19:19)
[2020-04-01 19:51] VITALS: RESP 18
== END 2020-04-01 19:55 | disposition home or self-care (01) ==
LOC: ED 19:20
PROVIDERS: Emergency Provider Emergency Medicine; PCP Internal Medicine
DX: M54.41 Lumbago with sciatica, right side (principal); C92.10 Chronic myeloid leukemia, BCR/ABL-positive, not having achieved remission
CPT/HCPCS: 96372; 99282

== ENCOUNTER 2020-05-03 03:57 | Emergency (ER) | payer OTHER, MEDICARE, SELFPAY ==
[2020-05-03 03:58] VITALS: BP 111/66; PULSE 66; RESP 18; TEMP 36.8; O2SAT 99; BMI 23.4
--- NOTE | 2020-05-03 03:58 | ED.VIS.GEN ---
History of Present Illness Chief Complaint: Abd Pain Informant: Patient Onset: Days Context: Gradual Onset Timing: Intermittent Current Severity: Moderate Maximum Severity: Moderate Narrative: The patient is a previously healthy male with history of chronic back pain who presents to the emergency department with right flank pain. The patient states he was actually seen here 2 or 3 weeks ago. At that point, he was having pain in his low back that radiated down his leg. He did have a history of sciatica and states this feels similar. He states however, the pain is changed. He has begun to have pain in his right flank area into his right lower quadrant. He also describes dysuria. He denies any fevers or chills. He denies nausea or vomiting. He has no history of prior abdominal surgery. He is not noticed any rash. He denies any trauma. Prior similar symptoms: No Recent Illness/Hospitalization: No Past Medical History - Allergies and Home Meds Allergies/Adverse Reactions: Allergies No Known Allergies Allergy (Verified 05/03/20 04:00) Primary Care Physician: Bella Ribeiro MD [Primary Care Provider] - Prior records reviewed: Yes Past Medical History: - - Chronic back pain, history of CLL Surgical History: noncontributory, - - Facial surgery to remove basal cell carcinoma. Nasal reconstruction Smoking Status: Never smoker - Family History Maternal Family History: Family History (Last Updated 09/21/19 @ 09:47 by Regi Bryan) Other CVA (cerebral vascular accident) Cancer Family History: Reports: Dementia Paternal Family History: Family History (Last Updated 09/21/19 @ 09:47 by Regi Bryan) Other CVA (cerebral vascular accident) Cancer Family History: Reports: Cancer - His father Lung cancer that metastasized to his brain. His father was a smoker. Review of Systems General: Denies: Chills, Fever, Sweats Eyes: Denies: Visual changes - bilaterally, Diplopia ENT: Denies: Rhinorrhea, Sore throat Cardiovascular: Denies: Chest pain, Palpitations Respiratory: Denies: Dyspnea, Cough, Dyspnea on exertion Gastrointestinal: Reports: Abdominal pain, Nausea. Denies: Vomiting, Diarrhea, Melena, Hematochezia Genitourinary: Reports: Hematuria. Denies: Dysuria, Frequency Musculoskeletal: Reports: Back pain. Denies: Extremity Pain Skin: Denies: Rash, Wounds Neurological: Denies: Headache, Weakness, Numbness Physical Exam Inital Vital Signs reviewed: Yes General: Well nourished, Well developed, No Acute Distress Head: Normocephalic, Atraumatic Eyes: Perrl, EOMI ENT: Moist mucous membranes, No rhinorrhea Neck: Supple, Nontender Cardiovascular: Regular rate, Regular rhythm, No murmurs Respiratory: No distress, CTA bilaterally, Chest nontender Abdomen: Soft, Nondistended, Normal bowel sounds, Tender. Negative for: Guarding, Rebound tenderness Back: Nontender, Normal Inspection Extremities: Nontender, No edema Skin: Normal color, No rash Neurological: Alert, Oriented x3, Cranial nerves II-XII grossly intact, Normal Strength, Normal Sensation Psychological: Normal affect, Normal Mood Diagnostic/Tx/Re-eval Clinical Impression(s) from Imaging Studies Abdomen/Pelvis CT 05/03/20 03:59 IMPRESSION: No acute abdominopelvic abnormality. Colonic diverticulosis. Splenomegaly. Individualized dose optimization techniques were used for this CT. at 0505 Reported and signed by: Neeta Willis MD Electronically Signed: Neeta Willis MD at 5:05 EST Tel , Service support , Abnormal Lab Results 05/03/20 05/03/20 05/03/20 04:10 04:10 04:52 WBC 5.2 RBC 4.39 L Hgb 13.5 Hct 41.5 MCV 94.5 H MCH 30.8 MCHC 32.5 RDW Std Deviation 42.8 RDW Coeff of Raul 12.1 Plt Count 155 MPV 9.9 Immature Gran % (Auto) 0.400 Neut % (Auto) 55.2 Lymph % (Auto) 31.3 [place] % (Auto) 7.7 Eos % (Auto) 4.8 Baso % (Auto) 0.6 Absolute Neuts (auto) 2.9 Absolute Lymphs (auto) 1.63 Nucleated RBC % 0 Sodium 140 Potassium 4.2 Chloride 106 Carbon Dioxide 30.0 Anion Gap 4 L BUN 28 H Creatinine 0.82 Estim Creat Clear Calc 85.42 Est GFR (MDRD) Af Amer 124 Est GFR (MDRD) Non-Af 103 BUN/Creatinine Ratio 34.2 H Glucose 89 Calcium 9.3 Urine Color Yellow Urine Clarity Clear Urine pH 7.0 Ur Specific [place] 1.010 Urine Protein Negative Urine Glucose (UA) Normal Urine Ketones Negative Urine Occult Blood Negative Urine Nitrite Negative Urine Bilirubin Negative Urine Urobilinogen Normal Ur Leukocyte Esterase 25 H Urine RBC 0 SEEN Urine WBC 0-5 SEEN Ur Squamous Epith Cells 0 SEEN Urine Bacteria 0 SEEN Urine Mucus 0 SEEN - Medical Decision Making Patient presents with lower abdominal pain that radiates up into his right flank. He does have some mild tenderness in the right lower quadrant, but no rebound or guarding. His skin is normal. There is no rash or vesicles. To do rectal exam and his prostate was tender. Metabolic work-up was pursued. This is relatively unremarkable. I also obtain noncontrast CT of the abdomen. His appendix is visualized and is normal. There is no obstructing process. With his symptoms, I do feel that treating him for prostatitis would be appropriate especially given his age and urinary symptoms. He will be started on Cipro and a short course of analgesics. The patient will be discharged home. Impression 1. Flank pain 2. Prostatitis ED Disposition - Plan for ED Patient: Instructions: ED Prostatitis Prescriptions: Ciprofloxacin [Cipro] 500 mg PO BID #14 tab Prescription Printed Hydrocodone Bitart/Apap 5-325 [[place] 5MG-325MG] 1 tab PO Q6H PRN PRN 3 Days #10 tab PRN Reason: Pain Prescription Printed Referrals: Bella Ribeiro MD [Primary Care Provider] -
--- NOTE | 2020-05-03 03:59 | CT_ITS ---
HISTORY: RT FLANK PAIN,BURNING WITH URINATIONHX:COPD,EMPHYSEMA,CLL,CHRONIC BACK PAIN,SKIN CANCER ADDITIONAL HISTORY: None provided. EXAMINATION/TECHNIQUE: CT Abdomen And Pelvis W/O Contrast Injection Enteric contrast was not given. Number of images including paperwork: 446. A radiation dose optimization technique was used for this scan. COMPARISON: 04/04/2018 FINDINGS: Evaluation of the abdominopelvic organs is limited in the absence of contrast. LOWER THORAX: No consolidation or pleural effusion. Minimal basilar atelectasis. Trace pericardial fluid. LIVER: No concerning focal lesion. GALLBLADDER: No radiopaque calculi. BILE DUCTS: No significant biliary dilatation. SPLEEN: Enlarged, 14.2 cm craniocaudal. PANCREAS: Unremarkable. ADRENAL GLANDS: Unremarkable. KIDNEYS/URETERS: Unremarkable. BOWEL: No bowel obstruction. No significant bowel wall thickening. No localized inflammation. Colonic diverticulosis. Moderate amount of colonic stool. APPENDIX: No evidence of appendicitis. FREE FLUID: No significant free fluid. FREE AIR: None. LYMPH NODES: No pathologic appearing adenopathy. PERITONEUM, RETROPERITONEUM AND MESENTERY: Otherwise unremarkable. VASCULATURE: Unremarkable as imaged. ABDOMINAL WALL: Unremarkable. PELVIS: Unremarkable bladder. Mild prostate enlargement. OSSEOUS AND SOFT TISSUE STRUCTURES: No acute skeletal findings. Degenerative changes. CT/Abdomen/Pelvis without Cont IMPRESSION: No acute abdominopelvic abnormality. Colonic diverticulosis. Splenomegaly. Individualized dose optimization techniques were used for this CT. at 0505 Reported and signed by: Neeta Willis MD Electronically Signed: Neeta Willis MD at 5:05 EST Tel , Service support ,
[2020-05-03] MEDS: Ondansetron 4 MG/2 ML Vial IV (04:08)
[2020-05-03] MEDS: Morphine 4 MG/ML Syringe IV (04:08)
[2020-05-03] MEDS: 0.9% Normal Saline 1,000 ML 250 ML IV (04:08)
[2020-05-03 04:17] LABS: Absolute Lymphocyte Count 1.63 X10^3/uL (0.83-4.51); Absolute Neutrophil Count 2.9 X10^3/uL (2.0-7.7); Basophil# 0.03 X10^3/uL; Basophil% 0.6 % (0-1); Eosinophil# 0.25 X10^3/uL; Eosinophils% 4.8 % (0-5); Hematocrit 41.5 % (40-54); Hemoglobin 13.5 g/dL (13.0-16.5); Lymphocyte # 1.63 X10^3/ul (4.0); Lymphocyte % 31.3 % (19-41); Mean Corp Hgb Conc 32.5 g/dL (32-36); Mean Corpuscular Hgb 30.8 pg (27.0-32.0); Mean Corpuscular Volume 94.5 fL (80-94); Mean Platelet Vol. 9.9 fl (6.2-12.0); Monocyte% 7.7 % (0-10); NRBC Flagged by Analyzer 0 % (0-5); Neutrophil # 2.88 X10^3/uL (2.7-7.7); Neutrophil % 55.2 % (47-70); Platelet Count 155 K/mm3 (150-450); RBC Distribution Width CV 12.1 % (11.6-14.6); RBC Distribution Width SD 42.8 fl (35.1-43.9); Red Blood Count 4.39 M/mm3 (4.6-6.2); White Blood Count 5.2 K/mm3 (4.4-11.0)
[2020-05-03 04:29] LABS: Anion Gap 4 (5-15); BUN 28 mg/dL (7-18); BUN/Creat Ratio 34.2 RATIO (10-20); Calcium,Total 9.3 mg/dL (8.5-10.1); Chloride 106 mmol/L (98-107); Creatinine, Serum 0.82 mg/dL (0.70-1.30); EST Glomerular Filtration Rate 103 mL/min (>60); Est Glom Filt Rate - Afr Amer 124 mL/min (>60); Estimated Creatinine Clearance 85.42 ml/min; Glucose 89 mg/dL (74-106); Potassium 4.2 mmol/L (3.5-5.1); Sodium Level 140 mmol/L (136-145)
[2020-05-03] MEDS: Ketorolac 15 MG/ML Vial IV (04:55)
[2020-05-03 04:57] LABS: Bacteria 0 SEEN /hpf (None Seen); Color, Urine Yellow (Yellow); Glucose, Dipstick Normal (Normal); Ketone-Dipstick Negative (Negative); Leukocyte Esterase-Dipstick 25 /ul (Negative); Mucous, Urine 0 SEEN /hpf (<or=2+); Nitrite-Dipstick Negative (Negative); Occult Blood-Urine Negative /ul (Negative); Protein-Dipstick Negative (Negative); Red Blood Cells-Urine 0 SEEN /hpf (0-5); Squamous Epithelial Cells - UA 0 SEEN /hpf (0-5); Urine Bilirubin Dipstick Negative (Negative); Urine Clarity Clear (Clear); Urine Urobilinogen Normal (Normal)
[2020-05-03 05:03] LABS: White Blood Cells 0-5 SEEN /hpf (0-5)
[2020-05-03 05:27] VITALS: RESP 16
== END 2020-05-03 05:52 | disposition home or self-care (01) ==
LOC: ED 04:43
PROVIDERS: Emergency Provider Emergency Medicine; PCP Internal Medicine
DX: R10.9 Unspecified abdominal pain (principal); N41.9 Inflammatory disease of prostate, unspecified; Z85.828 Personal history of other malignant neoplasm of skin
CPT/HCPCS: 74176; 80048; 81001; 85025; 96361; 96374; 96375; 99285; J7030; J2405

== ENCOUNTER 2020-05-31 01:32 | Emergency (ER) | payer OTHER, MEDICARE, SELFPAY ==
[2020-05-31 01:33] VITALS: BP 124/80; PULSE 64; RESP 16; TEMP 36.4; O2SAT 99; BMI 24.0
[2020-05-31 01:36] VITALS: BP 124/80; PULSE 64; RESP 16; TEMP 36.4; O2SAT 99
--- NOTE | 2020-05-31 01:51 | ED.VIS.DENTA ---
History of Present Illness Chief Complaint: Dental Informant: Patient Onset: Days - 2 Context: Gradual Onset Timing: Continuous Quality: throbbing Location: left mandibular tooth Current Severity: Severe Maximum Severity: Severe Worsened by: eating or touching the affected tooth Relieved by: - - leftover oxycodone but ran out Narrative: Patient presents with gradual onset tooth ache and the only tooth he has left in the left mandibular row, states he has an appointment with a dentist 2 days from now after the weekend but pain is getting worse and he had some leftover oxycodone that he was taking for that he ran out of, and he is mainly here seeking antibiotics for what he thinks may be an infection. He denies any fevers, chills, discharge, he did have a little bit of bleeding from the gums around it and the tooth is loose which is not normal for this tooth. Recent Illness/Hospitalization: No - Past Medical History (1) CML (chronic myelocytic leukemia) Status: Chronic Past Medical History - Allergies and Home Meds Allergies/Adverse Reactions: Allergies No Known Allergies Allergy (Verified 05/31/20 01:34) Primary Care Physician: Bella Ribeiro MD [Primary Care Provider] - Surgical History: - - Facial surgery to remove basal cell carcinoma. Nasal reconstruction Smoking Status: Never smoker - Family History Maternal Family History: Family History (Last Updated 09/21/19 @ 09:47 by Regi Bryan) Other CVA (cerebral vascular accident) Cancer Family History: Reports: Dementia Paternal Family History: Family History (Last Updated 09/21/19 @ 09:47 by Regi Bryan) Other CVA (cerebral vascular accident) Cancer Family History: Reports: Cancer - His father Lung cancer that metastasized to his brain. His father was a smoker. Review of Systems General: Denies: Chills, Fever, Sweats ENT: Reports: - - Dental pain, see HPI. Denies: Bilateral ear pain, Rhinorrhea, Sore throat Cardiovascular: Denies: Chest pain, Palpitations Respiratory: Denies: Dyspnea, Cough Gastrointestinal: Denies: Nausea, Vomiting Musculoskeletal: Denies: Neck pain Skin: Denies: Rash, Wounds Neurological: Denies: Headache, Weakness, Numbness Physical Exam Vital Signs/Narrative: Vital Signs Temp Pulse Resp BP Pulse Ox 05/31/20 01:36 97.5 F L 64 16 124/80 H 99 05/31/20 01:33 97.5 F L 64 16 124/80 H 99 Inital Vital Signs reviewed: Yes General: Well nourished, Well developed, - - Well-appearing no distress, conversive in full sentences Head: Normocephalic, Atraumatic ENT: Moist mucous membranes, No rhinorrhea. Negative for: Sinus tenderness Mouth/Throat: No focal abscess, Tenderness on tooth percussion - Patient has a bicuspid left mandibular row, only tooth present, it is loose extremely tender, there is no discharge or clear abscess but there are signs of friable gingiva at the base of the tooth. No active bleeding or necrotic tissue., - - No submental fullness or tongue deviation.. Negative for: Trismus Neck: Supple, No lymphadenopathy, Nontender Skin: Normal color, No rash, No Trauma Neurological: Alert, Oriented x3, Cranial nerves II-XII grossly intact, Normal Strength, Normal Sensation, Normal Gait Psychological: Normal affect, Normal Mood Diagnostic/Tx/Re-eval - Medical Decision Making No drainable abscess present but it does appear that the patient has an early dental infection. He was started on clindamycin since there is some sign of gingivitis here, as well as a short course of Percocet. ED Disposition - Plan for ED Patient: Disposition: Home or Assisted Living Diagnosis: Dental infection Instructions: ED Tooth Abscess Prescriptions: Clindamycin [Cleocin] 300 mg PO 4X/DAY #80 cap Prescription Printed Oxycodone HCl/Acetaminophen [Percocet 5/325] 1 tab PO Q6H PRN PRN 2 Days #10 tab PRN Reason: Pain Prescription Printed Referrals: Bella Ribeiro MD [Primary Care Provider] - Dentist,Your [STAFF PHYSICIAN] - Keep [facility] appointment
[2020-05-31 02:10] VITALS: BP 124/80; PULSE 64; RESP 16; O2SAT 99
== END 2020-05-31 02:10 | disposition home or self-care (01) ==
PROVIDERS: Emergency Provider Emergency Medicine; PCP Internal Medicine
DX: K04.7 Periapical abscess without sinus (principal)
CPT/HCPCS: 99282